=== PATIENT | male | born 1995 | race Caucasian/White ===

== ENCOUNTER 2021-12-11 10:50 | Emergency (ER) | payer OTHER, SELFPAY ==
[2021-12-11] VITALS (62 sets, daily range): BP systolic 120–165; BP diastolic 71–88; PULSE 55–78; RESP 9–27; TEMP 36.4; O2SAT 93–99
--- NOTE | 2021-12-11 10:45 | RT.EKG_ITS ---
APPROVED REPORT Exam: Resting ECG Reason for Exam: dizzy/arm numbness Patient Location: E HR:64 bpm ECG Measurements Heart Rate 64 AXIS IL 167 P 14 QRSd 107 QRS 66 QT 398 T 49 QTc 412 Conclusion Sinus rhythm...normal P axis, V-rate 60- 99 no stemi
--- NOTE | 2021-12-11 11:08 | W.ED.GENAD ---
Discharge Plan Disposition Patient Disposition: AGAINST MEDICAL ADVICE Condition: Stable Discharge Details Clinical Impression: Lightheaded Primary Care Provider: Anuja,Local ED Provider: Nolan Bhatia Home Meds and New Rx's Prescriptions: Continued omeprazole 40 MG capsule,delayed release(DR/EC) 40 mg PO DAILY Qty: 60 hydrocodone-acetaminophen 1 TAB tablet 1 tab PO Q6H PRN (Reason: Pain) Qty: 15 0RF Discharge Instructions Additional Instructions: Follow up as soon as possible with a primary care provider If you feel more ill, have worsening pain or difficulty breathing return to the emergency department Stand Alone Forms: Work Release Medical Decision Making 26 yo male with hx of erd comes in with cc of feeling lightheaded, some right scapula and right shoulder discomfort starting 4 hours ago while at work. 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 He denies feeling the room spinning or dizziness, he states it feels more like he is lightheaded. Denies any dyspnea, loc, abdomen pain, fevers, chills, drug use. He arrives stable with normal vitals. He has no deficits on exam and nih of 0. Has a reassuring hints exam as well so doubt central vertigo and has more of a lightheaded sensation than symptoms of vertigo. He has tenderness in the right scapula without any trauma, no rashes or other abnormalities noted. Clear lungs, no murmurs, no jvd or leg swelling. He has felt stressed as he has been working a lot and feel this could be stress related symptoms vs being overworked but will evaluate further with troponin, ecg unremarkable. He is wells low but states he feels taking a deep breath makes his pain mildly worse so will send d dimer to screen for pe. No tearing back pain and normal vascular exam so doubt dissection labs and xray unremarkable, he remains stable and feels much better after fluids, will obtain delta troponin, suspect exhaustion vs stress. pt now stating he doesn't want to wait for delta troponin. Discussed with him why we do the delta troponin and risks of leaving including and permanent disability and he still doesn't want to stay. He has decisions making capacity and is clinically sober. He is leaving against my medical advise. He understands he can return if he changes his mind at any time and advised to f/u with his pcp Differential Diagnosis Differential Diagnosis: nstemi, exhaustion, anxiety, pe Lab Data Lab results reviewed: Yes I reviewed the patient's lab results. ECG Data Attestation: I personally reviewed and interpreted this ECG (s) as follows: Prior ECG tracings: not available for review Interpretation: sinus rhythm, rate of 64, pr 167, no acute st t wave ischemic findings HPI General Mode of arrival: ambulatory. Date/Time Provider Initiated Documentation: 12/11/21 10:52. Limitations to Documentation: no limitations. Information obtained by: patient. History of Present Illness 26 year old M presents to the emergency department with the chief complaint of lightheaded, described as moderate, Patient started experiencing this hour(s) (4) and it has been constant. No relieving factors improve symptom(s), No exacerbating factors reported . Patient notes denies fever/chills. Patient did receive the following treatments prior to arrival, none Related Data Home Medications Medication Instructions Recorded Confirmed omeprazole 40 mg capsule,delayed 40 mg PO DAILY #60 tab-caps 02/19/16 12/11/21 release hydrocodone 5 mg-acetaminophen 325 1 tab PO Q6H PRN Pain #15 tabs 01/05/18 mg tablet Previous Rx's Medication Instructions Recorded hydrocodone 5 mg-acetaminophen 325 1 tab PO Q6H PRN Pain #15 tabs 01/05/18 mg tablet Allergies Allergy/AdvReac Type Severity Reaction Status Date / Time morphine Allergy Mild rash,vomiti Unverified 12/11/21 11:00 ng oxycodone HCl [From Percocet] Allergy Mild rash,vomiti Unverified 12/11/21 11:00 ng acetaminophen [From Percocet] AdvReac Mild rash,vomiti Unverified 12/11/21 11:00 ng General Stated Complaint: Dizzy/Sync GILLIAN: 3 Review of Systems All systems reviewed & are unremarkable except as noted in HPI and below Constitutional Constitutional: Denies chills and Denies fever(s) Eyes Eyes: Denies loss of vision ENT Ears, Nose, Mouth, and Throat: Denies change in voice Cardiovascular Cardiovascular: Denies dyspnea Respiratory Respiratory: Denies cough and Denies dyspnea Gastrointestinal Gastrointestinal: Denies abdominal pain, Denies nausea and Denies vomiting Musculoskeletal Musculoskeletal: Denies joint swelling Integumentary/Breasts Skin/Breast: Denies rash Neurologic Neurologic: Denies loss of vision PFSH All Active Problems (Updated 12/11/21 @ 12:45 by Nolan Bhatia MD) Lightheaded (Acute) Surgical History (Updated 01/03/16 @ 11:52 by Loni Biggs RN) Circumcision fracture repairs Family History Mother Essential hypertension Personal history of malignant neoplasm Thyroid removed for ? CA Mental disorder Depression and Anxierty Father Essential hypertension Other Diabetes Maternal grandmother diabetes. Essential hypertension Maternal and paternal grandparents. Heart disease Maternal and Paternal sides Hyperlipidemia PGM, PGM Social History Smoking/Tobacco Use Status: Former Tobacco Use Smoking risk assessment performed?: Yes Alcohol Intake: current Alcohol Intake frequency: a few times a week Drug use: Never Substance use type: does not use Do you feel safe at home: Yes Do you feel safe in your relationship?: Yes Exam Const General: no acute distress Orientation: alert HENMT Head: normal to inspection Ears: external ears normal General nose exam: external nose normal Mouth: moist mucous membranes Eyes General: appearance normal, both eyes and all related structures Neck Neck: normal visual inspection Resp Effort & Inspection: normal respiratory effort and able to speak in complete sentences Cardio Rate: regular rate GI Palpation: soft and nontender Skin General skin exam: no rashes or lesions noted Neuro General: patient alert and patient oriented x3 Extrem General: normal to inspection Psych Mental Status: mental status grossly normal Course Vital Signs Vital signs: Vital Signs Temperature 36.4 C L 12/11/21 10:56 Pulse 66 12/11/21 10:56 Respiratory Rate 18 12/11/21 10:56 Blood Pressure 165/82 H 12/11/21 10:56 Pulse Oximetry 97 12/11/21 10:56 Temperature 36.4 C L 12/11/21 10:56 Temperature Source Temporal Artery Scan 12/11/21 10:56 Pulse 66 12/11/21 10:56 Respiratory Rate 18 12/11/21 10:56 Respiratory Effort Non-Labored 12/11/21 11:01 Blood Pressure 165/82 H 12/11/21 10:56 Blood Pressure Position Sitting 12/11/21 10:56 Pulse Oximetry 97 12/11/21 10:56 Oxygen Delivery Method Room Air 12/11/21 10:56 Oxygen Flow Rate 0 12/11/21 10:56 PAWSS Have you Been Recently Intoxicated or Drunk Within the Last 30 days?: No Have you Ever Experienced Previous Episodes of Alcohol Withdrawal?: No Have you ever Experienced Withdrawal Seizures?: No Have you ever Experienced Delirium Tremens(DT)s?: No Have you ever undergone Alcohol Rehabilitation Treatment (i.e, inpt ot outpatient treatment programs)?: No Have you ever Experienced Blackouts?: No Have you ever Combined Alcohol with other Downers within the last 90 days?: No Have you ever Combined Alcohol with any other Substance of Abuse during the last 90 days?: No Positive Blood Alcohol level on Presentation? [PCS.BAL]: No Evidence of Increased Autonomic Activity (i.e. HR>120, tremor, sweating, agitation, nausea)?: No Result: 0
[2021-12-11 11:27] LABS: Abs Immature Grans 0.01 10^3/uL (0.0-0.06); Absolute Basophil Count 0.03 10^3/uL (0.0-0.2); Absolute Eosinophil Count 0.11 10^3/uL (0.0-0.7); Absolute Lymphocyte Count 1.93 10^3/uL (1.2-3.4); Absolute Neutrophil Count 4.27 10^3/uL (1.2-6.7); Basophils % 0.4; Eosinophils % 1.6; HCT 39.4 % (40.0-50.0); HGB 13.3 g/dL (13.5-17.5); Immature Grans % 0.1; Lymphocytes % 27.4; MCH 29.5 pg (27.0-33.0); MCHC 33.8 % (32.0-36.0); MCV 87 fL (80-95); MPV 9.7 fL (8.0-11.0); Monocytes % 9.9; Neutrophils % 60.6; Platelet Count 243 10^3/uL (130-400); RBC 4.51 10^6/uL (4.36-5.78); RDW 11.9 % (11.8-14.1); RDW-SD 38.2 fL; WBC 7.05 10^3/uL (4.4-10.8)
[2021-12-11] MEDS: Normal Saline 1,000 ML 1000 ML IV (11:33)
--- NOTE | 2021-12-11 11:40 | DI.RAD_ITS ---
Exam(s) XR PORTABLE CHEST AP EXAM: XR PORTABLE CHEST AP CLINICAL HISTORY: chest pain TECHNIQUE: 2D digital imaging was performed of the chest. One image was obtained. An AP view was ob tained. COMPARISON: No exams were available for comparison FINDINGS: MEDIASTINUM: Normal. HEART: Normal. PULMONARY VASCULATURE: Normal. LUNGS: Clear. PLEURAL SPACE: No pleural effusion or pneumothorax. BONE:Within normal limits for the patient's age. OTHER FINDINGS:Normal. IMPRESSION: No acute pulmonary findings. DATA REPOSITORY: RADIATION DOSE DELIVERED:
[2021-12-11 11:46] LABS: ALT 69 U/L (16-63); AST 46 U/L (15-37); Albumin 3.8 g/dL (3.4-5.0); Alkaline Phosphatase 72 U/L (46-116); Anion Gap 7.8 mmol/L (3-11); BUN 13 mg/dL (7-18); Bilirubin, Total 0.6 mg/dL (0.2-1.0); CO2 27.2 mmol/L (21.0-32.0); CREATININE 0.9 mg/dL (0.70-1.30); Chloride 103 mmol/L (98-107); Glucose 101 mg/dL (74-106); Lipase 80 U/L (73-393); Magnesium 1.8 mg/dL (1.8-2.4); Potassium 3.7 mmol/L (3.5-5.1); Sodium 138 mmol/L (136-145); Total Protein 7.4 g/dL (6.4-8.2); Troponin I < 50 ng/L (<or=60)
[2021-12-11 12:09] LABS: D-Dimer 273 ng/mlFEU (<500)
== END 2021-12-11 12:58 | disposition left against medical advice (07) ==
PROVIDERS: Emergency Provider Emergency Medicine
DX: R42 Dizziness and giddiness (principal); M25.511 Pain in right shoulder; Z87.891 Personal history of nicotine dependence
CPT/HCPCS: 36415; 80053; 83690; 93005; 96360; 99284; 71045; 83735; 84484; 85025; 85379; 93010

== ENCOUNTER 2022-05-08 01:14 | Outpatient (CLI) | payer OTHER, SELFPAY ==
--- NOTE | 2022-05-08 08:00 | DI.RAD_ITS ---
Exam(s) XR ANKLE LT COMPLETE EXAM: XR ANKLE LT COMPLETE CLINICAL HISTORY: LT ANKLE PAIN, M25.572,S/P TRAUMA 1 YEAR AGO, PRE PHYSICAL THERAPY. TECHNIQUE: 2D digital imaging was performed. COMPARISON: No exams were available for comparison FINDINGS: 3 views No evidence of fracture or widening of the ankle mortise. Talar dome unremarkable. No degenerative changes. No osteochondral defects. Os trigonum noted. No osseous tarsal coalition. IMPRESSION: No acute osseous findings. DATA REPOSITORY: RADIATION DOSE DELIVERED:
== END 2022-05-08 01:34 ==
LOC: DI 01:15
PROVIDERS: Visit Provider Nurse Practitioner Family
DX: M25.572 Pain in left ankle and joints of left foot (principal)
CPT/HCPCS: 73610

== ENCOUNTER 2022-06-27 16:43 | Outpatient (REF) | payer OTHER, SELFPAY ==
[2022-06-27 16:29] LABS: Abs Immature Grans 0.01 10^3/uL (0.0-0.06); Absolute Basophil Count 0.03 10^3/uL (0.0-0.2); Absolute Eosinophil Count 0.16 10^3/uL (0.0-0.7); Absolute Lymphocyte Count 1.83 10^3/uL (1.2-3.4); Absolute Monocyte Count 0.58 10^3/uL (0.1-0.8); Absolute Neutrophil Count 2.97 10^3/uL (1.2-6.7); Basophils % 0.5; Eosinophils % 2.9; HCT 44.4 % (40.0-50.0); HGB 14.5 g/dL (13.5-17.5); Immature Grans % 0.2; Lymphocytes % 32.8; MCH 28.9 pg (27.0-33.0); MCHC 32.7 % (32.0-36.0); MCV 88 fL (80-95); MPV 10.1 fL (8.0-11.0); Monocytes % 10.4; Neutrophils % 53.2; Platelet Count 339 10^3/uL (130-400); RBC 5.02 10^6/uL (4.36-5.78); RDW 12.5 % (11.8-14.1); RDW-SD 40.2 fL; WBC 5.58 10^3/uL (4.4-10.8)
[2022-06-27 16:55] LABS: ALT 84 U/L (16-63); AST 56 U/L (15-37); Albumin 4.5 g/dL (3.4-5.0); Alkaline Phosphatase 75 U/L (46-116); Anion Gap 10.7 mmol/L (3-11); BUN 9 mg/dL (7-18); Bilirubin, Total 0.7 mg/dL (0.2-1.0); CO2 26.3 mmol/L (21.0-32.0); CREATININE 0.9 mg/dL (0.70-1.30); Calcium 9.8 mg/dL (8.5-10.1); Chloride 104 mmol/L (98-107); Estimated GFR 122.31 (mL/min/1.73m2); Folate 11.9 ng/mL (8.6-20.0); Glucose 97 mg/dL (74-106); Potassium 4.2 mmol/L (3.5-5.1); Sodium 141 mmol/L (136-145); TSH (W/Ref FT4) 0.87 uIU/mL (0.36-3.74); Total Protein 7.8 g/dL (6.4-8.2)
[2022-06-27 16:56] LABS: Hemoglobin A1C 5.2 % (<5.7)
== END 2022-06-27 16:44 | disposition home or self-care (01) ==
LOC: NCHCN 16:43
PROVIDERS: Visit Provider Nurse Practitioner Family
DX: Z00.00 Encounter for general adult medical examination without abnormal findings (principal); F10.10 Alcohol abuse, uncomplicated; R25.2 Cramp and spasm; K21.9 Gastro-esophageal reflux disease without esophagitis; R94.5 Abnormal results of liver function studies; E66.01 Morbid (severe) obesity due to excess calories; Z13.1 Encounter for screening for diabetes mellitus; Z13.29 Encounter for screening for other suspected endocrine disorder
CPT/HCPCS: 80053; 82746; 83036; 83735; 84443; 85025

== ENCOUNTER 2022-08-23 01:49 | Emergency (ER) | payer OTHER, SELFPAY ==
[2022-08-23 01:54] VITALS: BP 121/96; PULSE 105; RESP 18; TEMP 36.6; O2SAT 96
--- NOTE | 2022-08-23 02:00 | DI.RAD_ITS ---
Exam(s) XR ANKLE RT COMPLETE EXAM: XR ANKLE RT COMPLETE CLINICAL HISTORY: no tramua, posterior and lateral ankle pain. TECHNIQUE: 2D digital imaging was performed of the right ankle. Three images were obtained. AP, la teral and oblique views were obtained. COMPARISON: No exams were available for comparison FINDINGS: BONES: There is a nondisplaced fracture through the base of the 5th metatarsal. No bony destructive lesion is seen. There is a bony protuberance arising from the posterior aspect of the distal tibial m etaphysis suspicious for osteochondroma. There is a well corticated osseous density at the tip of th e lateral malleolus which appears old. There is an enthesophyte at the posterior calcaneus. JOINTS: The ankle mortise is normally aligned. SOFT TISSUE: Normal. IMPRESSION: 1. Nondisplaced fracture through the base of the 5th metatarsal. 2. Probable osteochondroma arising from the posterior aspect of the distal tibial metaphysis. DATA REPOSITORY: RADIATION DOSE DELIVERED:
[2022-08-23] MEDS: Ketorolac 30 MG/ML VIAL IM (02:16)
[2022-08-23] MEDS: Lidocaine 5% Patch 1 PATCH TP (02:16)
[2022-08-23] MEDS: Acetaminophen 500 MG TAB 1000 MG PO (02:17)
--- NOTE | 2022-08-23 02:42 | ED.GENADUL_ITS ---
Discharge Plan Disposition Patient Disposition: Home Condition: Good Discharge Details Chief Complaint: Orthopedic Clinical Impression: Closed fracture of fifth metatarsal bone, Osteochondroma of right tibia Primary Care Provider: Anuja,Local ED Provider: Shyam Muro Home Meds and New Rx's Prescriptions: No Action omeprazole 40 MG capsule,delayed release(DR/EC) 40 mg PO DAILY Qty: 60 hydrocodone-acetaminophen 1 TAB tablet 1 tab PO Q6H PRN (Reason: Pain) Qty: 15 0RF Discharge Instructions Instructions: Foot Fracture in Adults (ED) Additional Instructions: At this time you have a mild fracture in the base of your foot at the fifth metatarsal. Please remain nonweightbearing for the next 2 weeks. Use the crutches to maintain this. Eventually please gradually transition to mild weightbearing utilizing the walking boot that we have given you. We have placed a referral for a new primary care provider. Please follow-up closely with them. If you notice any worsening of your symptoms, or any new symptoms such as vomiting, diarrhea, fever, chills, shortness of breath, chest pain, numbness, weakness, or fainting , please return immediately to the emergency department for reevaluation. Please follow up with your primary care provider as soon as possible for reassessment and reevaluation. As always, it was a pleasure participating in your medical care today. Medical Decision Making 27-year-old male no significant past medical history except for reflu x, and previous left foot and ankle pain, presents today for right ankle and foot pain. Patient states that out of nowhere he woke up this morning/evening. It is Achilles tendon and heel and ankle. He denies any trauma or any new activity. He states that he had similar/identical symptoms on the left hand foot in the past, but work-up revealed no focal cause. He denies any trauma, he denies any new activity. He denies any personal or family history of gout. He denies any known history of reflex and pathetic dystrophy. No other complaints at this time. Pain is made worse with weightbearing and movement. Improved by nothing. He has not taken any medications. He denies any numbness or tingling. He denies any calf tenderness. He denies any recent long trips or surgeries. Exam demonstrates an unremarkable right lower extremity on exam from a visual perspective. No redness swelling or edema. No evidence of trauma or bruising. Patient does have subjective notable tenderness over the Achilles tendon, the calcaneus, the ankle. No tenderness in the feet or mid pedraza. Uncertain as to what the exact causes of his symptoms. Doubt fracture but we will get an x-ray to rule out atypical lesion. There is potential for gout, reflect sympathetic dystrophy, or arthropathy. We will give Toradol, Tylenol and Lidoderm patch. Will monitor closely and reassess. 3:51 AM X-ray shows evidence of what appears to be mild osteochondroma, which is not in the location of his pain. 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 Patient does not recall any trauma. He does not snowboard, ride horses, or dirt bike. He normally wears sneakers or work boots. Will recommend continue Tylenol Motrin. Recommend nonweightbearing for the next 2 weeks with slow transition to walking boot. Discussed importance of close follow-up with PCP. Discussed red flags for which to return. I have extensively reviewed the treatment plan and discharge instructions with the patient and their family. I have addressed all patient concerns at this time. The patient and family was made aware of what symptoms to monitor for that would warrant a return to the emergency department. Discussed the plan with the patient and family, they demonstrate verbal understanding and agreement with our assessment and plan at this time. The documentation in this chart was dictated using Holidog dictation software. Please excuse any dictation errors. We will place a referral for a primary care provider for the patient FINDINGS: Bones/joints: There is a probable osteochondroma projecting from the dorsal aspect of the right tibia. Noninflamed enthesophyte seen within the region of the Achilles tendon. Probable old injury to the right fibula. Appears to be a fracture of the proximal 5th metatarsal recommend obtaining additional foot views if clinically warranted. Bone mineralization is age- appropriate. No evidence of dislocation. The joint spaces are adequately preserved; no significant degenerative narrowing and no bony erosion seen. Soft tissues: No radiopaque foreign body present. There is soft tissue swelling present. IMPRESSION: 1. Appears to be a fracture of the proximal 5th metatarsal recommend obtaining additional foot views if clinically warranted. 2. Soft tissue swelling only. 3. There is a probable osteochondroma projecting from the dorsal aspect of the right tibia. Thank you for allowing us to participate in the care of your patient. Dictated and Authenticated by: Skyler Poon MD [facility] General Date/Time Provider Initiated Documentation: 08/23/22 01:59 . HPI Narrative: 27-year-old male no significant past medical history except for reflux, and previous left foot and ankle pain, presents today for right ankle and foot pain. Patient states that out of nowhere he woke up this morning/evening. It is Achilles tendon and heel and ankle. He denies any trauma or any new activity. He states that he had similar/identical symptoms on the left hand foot in the past, but work-up revealed no focal cause. He denies any trauma, he denies any new activity. He denies any personal or family history of gout. He denies any known history of reflex and pathetic dystrophy. No other complaints at this time. Pain is made worse with weightbearing and movement. Improved by nothing. He has not taken any medications. He denies any numbness or tingling. He denies any calf tenderness. He denies any recent long trips or surgeries. Related Data Home Medications Medication Instructions Recorded Confirmed omeprazole 40 mg capsule,delayed 40 mg PO DAILY #60 tab-caps 02/19/16 08/23/22 release hydrocodone 5 mg-acetaminophen 325 1 tab PO Q6H PRN Pain #15 tabs 01/05/18 mg tablet Previous Rx's Medication Instructions Recorded hydrocodone 5 mg-acetaminophen 325 1 tab PO Q6H PRN Pain #15 tabs 01/05/18 mg tablet Allergies Allergy/AdvReac Type Severity Reaction Status Date / Time morphine Allergy Mild rash,vomiti Unverified 08/23/22 02:06 ng oxycodone HCl [From Percocet] Allergy Mild rash,vomiti Unverified 08/23/22 02:06 ng acetaminophen [From Percocet] AdvReac Mild rash,vomiti Unverified 08/23/22 02:06 ng General Stated Complaint: Orthopedic GILLIAN: 3 Review of Systems All systems reviewed & are unremarkable except as noted in HPI and below PFSH All Active Problems (Updated 08/23/22 @ 03:55 by Shyam Muro DO) Closed fracture of fifth metatarsal bone (Acute) Osteochondroma of right tibia (Acute) Surgical History Circumcision fracture repairs Family History Mother Essential hypertension Personal history of malignant neoplasm Thyroid removed for ? CA Mental disorder Depression and Anxierty Father Essential hypertension Other Diabetes Maternal grandmother diabetes. Essential hypertension Maternal and paternal grandparents. Heart disease Maternal and Paternal sides Hyperlipidemia PGM, PGM Social History Smoking/Tobacco Use Status: Former Tobacco Use Smoking risk assessment performed?: Yes Alcohol Intake: current Alcohol Intake frequency: a few times a week Drug use: Never Substance use type: does not use Do you feel safe at home: Yes Do you feel safe in your relationship?: Yes Exam Narrative Exam Narrative: 1.Const: Well-nourished, Well-developed, appearing stated age 2.Eyes: PERRL, no conjunctival injection, and symmetrical lids. 3.ENT: Atraumatic external nose and ears. Moist MM. Neck: Symmetric, trachea midline, No thyromegaly. 4.CVS: +S1/S2, No murmurs or gallops. Peripheral pulses 2+ and equal in all extremities. Brisk capillary refill in all extremities. 5.RESP: Unlabored respiratory effort. Clear to auscultation bilaterally. No wheezes rales or rhonchi 6.GI: Soft, Nontender/Nondistended, No hepatosplenomegaly. No guarding or rebound. 7.MSK: Normocephalic/Atraumatic, Extremities w/o deformity, right ankle there is evidence of subjective tenderness over the Achilles tendon, the heel, and the ankle throughout. No focal tenderness. No redness swelling discharge or rash. Normal sensation in the toes and foot. No tenderness in the toes or distal metatarsals/phalanges. No tenderness over the mid or proximal tib-fib. No tenderness on the calf. Pain is present with any movement of the ankle. Patient did not tolerate weightbearing. 8.Skin: Warm, Dry. No rashes or lesions. 9.Neuro: pharmaceutical sales II-XII grossly intact. Sensation grossly intact, no focal neurologic deficits. 10.Psych: (AAO) x3. Appropriate mood and affect Course Vital Signs Vital signs: Vital Signs Temperature 36.6 C 08/23/22 01:54 Pulse 105 H 08/23/22 01:54 Respiratory Rate 18 08/23/22 01:54 Blood Pressure 121/96 H 08/23/22 01:54 Pulse Oximetry 96 08/23/22 01:54 Temperature 36.6 C 08/23/22 01:54 Temperature Source Oral 08/23/22 01:54 Pulse 105 H 08/23/22 01:54 Respiratory Rate 18 08/23/22 01:54 Respiratory Effort Normal 08/23/22 02:01 Blood Pressure 121/96 H 08/23/22 01:54 Blood Pressure Position Sitting 08/23/22 01:54 Pulse Oximetry 96 08/23/22 01:54 Oxygen Delivery Method Room Air 08/23/22 01:54 Oxygen Flow Rate 0 08/23/22 01:54 Pain Level 8 08/23/22 02:01
--- NOTE | 2022-08-23 03:37 | DI.VRAD_ITS ---
PROCEDURE INFORMATION: Exam: XR Right Ankle Exam date and time: 08/23/2022 2:35 AM Age: 27 years old Clinical indication: Pain; Ankle; Right; Additional info: No tramua, posterior and lateral ankle pain TECHNIQUE: Imaging protocol: Radiologic exam of the right ankle. Views: 3 or more views. COMPARISON: No relevant prior studies available. FINDINGS: Bones/joints: There is a probable osteochondroma projecting from the dorsal aspect of the right tibia. Noninflamed enthesophyte seen within the region of the Achilles tendon. Probable old injury to the right fibula. Appears to be a fracture of the proximal 5th metatarsal recommend obtaining additional foot views if clinically warranted. Bone mineralization is age-appropriate. No evidence of dislocation. The joint spaces are adequately preserved; no significant degenerative narrowing and no bony erosion seen. Soft tissues: No radiopaque foreign body present. There is soft tissue swelling present. IMPRESSION: 1. Appears to be a fracture of the proximal 5th metatarsal recommend obtaining additional foot views if clinically warranted. 2. Soft tissue swelling only. 3. There is a probable osteochondroma projecting from the dorsal aspect of the right tibia. Dictated and Authenticated by: Skyler Poon MD. Ordering:NEIDA Howe MD
[2022-08-23 04:06] VITALS: PULSE 100; RESP 18; O2SAT 98
== END 2022-08-23 04:07 | disposition home or self-care (01) ==
PROVIDERS: Emergency Provider Student in an Organized Health Care Education/Training Program
DX: S92.351A Displaced fracture of fifth metatarsal bone, right foot, initial encounter for closed fracture (principal); D16.21 Benign neoplasm of long bones of right lower limb; X58.XXXA Exposure to other specified factors, initial encounter
CPT/HCPCS: 96372; 99284; 73610; J1885

== ENCOUNTER 2023-08-05 18:13 | Outpatient (REF) | payer BC, SELFPAY ==
[2023-08-05 19:30] LABS: HCT 42.9 % (40.0-50.0); HGB 14.1 g/dL (13.5-17.5); MCHC 32.9 % (32.0-36.0); MCV 88 fL (80-95); MPV 10.4 fL (8.0-11.0); Platelet Count 300 10^3/uL (130-400); RBC 4.86 10^6/uL (4.36-5.78); RDW 12.7 % (11.8-14.1); WBC 7.76 10^3/uL (4.4-10.8)
[2023-08-05 20:08] LABS: ALT 53 U/L (16-63); AST 31 U/L (15-37); Albumin 4.1 g/dL (3.4-5.0); Alkaline Phosphatase 93 U/L (46-116); Anion Gap 13.7 mmol/L (3-11); BUN 16 mg/dL (7-18); Bilirubin, Total 0.4 mg/dL (0.2-1.0); CO2 24.3 mmol/L (21.0-32.0); CREATININE 0.7 mg/dL (0.70-1.30); Calcium 9.1 mg/dL (8.5-10.1); Chloride 107 mmol/L (98-107); Estimated GFR 130.32 (mL/min/1.73m2); Folate 17.4 ng/mL (8.6-20.0); Glucose 104 mg/dL (74-106); Potassium 4.3 mmol/L (3.5-5.1); Sodium 145 mmol/L (136-145); Total Protein 7.5 g/dL (6.4-8.2); Vitamin B12 427 pg/mL (193-986)
[2023-08-06 12:04] LABS: TSH (W/Ref FT4) 0.71 uIU/mL (0.36-3.74)
[2023-08-11 10:37] LABS: Misc Referral (MAYO) See Comments
== END 2023-08-05 18:14 | disposition home or self-care (01) ==
LOC: NCHCN 18:13
PROVIDERS: PCP Nurse Practitioner Family; Visit Provider Nurse Practitioner Family
DX: L65.9 Nonscarring hair loss, unspecified (principal)
CPT/HCPCS: 80053; 85027; 86780; 82607; 82746; 84443

== ENCOUNTER → 2023-12-17 15:32 | Outpatient (CLI) | payer BC, SELFPAY ==
--- NOTE | 2023-12-17 13:19 | DI.RAD_ITS ---
Exam(s) XR FINGER RT INDEX EXAM: XR FINGER RT INDEX CLINICAL HISTORY: INJURY RT FINGER [id number]. TECHNIQUE: 2D digital imaging was performed. Three views. COMPARISON: No exams were available for comparison FINDINGS: BONES: 6 millimeter fracture fragment seen significantly displaced dorsally to the proximal interphal angeal joint which originates from the head of the proximal phalanx. No bony destructive lesion is s een. JOINTS: No dislocation present. SOFT TISSUE: Normal. IMPRESSION: Fracture of the head of the proximal phalanx of the index finger with dorsally displaced fracture fra gment. DATA REPOSITORY: RADIATION DOSE DELIVERED:
--- OUTSIDE RECORDS SUMMARY | 2023-12-17 15:34 | XMS_ITS | Encounter Summary ---
Author Organization [facility] Address [facility] [place] [address] Care Team Providers Care Marine Electronics Technician Name Role Phone Janay Briones APRN Primary Care Provider [phone] Reason for Visit * Consultation (Routine) - Closed Specialty Diagnoses / Procedures Referred By Lc castillo Referred To Contact Dermatology Diagnoses Other alopecia areata Janay Briones APRN [address] [place] [address] [facility] Dermatology [address] [place] [address] Referral ID Status Reason Start Date Expiration Date V isits Requested Visits Authorized [id number] Closed Consult, Test & Treat PCP Updated and/or Approved 08/06/2023 02/06/2024 1 1 Encounter Details Date Type Department Care Team (Late st Contact Info) Description 09/11/2023 10:00 AM EDT Office Visit Dermatology at [facility] [address] [place] [address] Regla Schneider MD [facility] [address] [place] [address] Alopecia areata Social History Tobacco Use Types Packs/Day Years Used Date Smoking Tobacco: Never Assessed Sex and Gender Information Value Date Recorded Sex Assigned at Not on file Gender Identity Not on file Sexual Orientation Not on file documented as of this encounter Progress Notes * Regla Schneider MD - 09/11/2023 10:00 AM EDT Images from the original note were not included. DEPARTMENT OF DERMATOLOGY Medical Dermatology Clinic Provider: Regla Schneider MD Patient's preferred name Olivier Preferred contact method for results [x]Phone []myD-H []Letter Detailed phone message OK? yes Are there any other people with whom we may discuss your care? Past Medical History Date, location, treatment Melanoma Dysplastic nevi SCC BCC AKs UV Exposure & Protection Other relevant past medical history Family History Details Melanoma NMSC Other relevant family history Social History Occupation: Hobbies: Other: Pre-Procedure Screening Details Allergy to lidocaine, epinephrine, Dermabond, chlorhexidine, or adhesives Bleeding disorder or blood thinners Pacemaker, defibrillator, deep brain stimulator, cochlear implant History of Present Illness: Olivier Santana is a 28 y.o. Patient is new and self-referred to the clinic for hair loss, alopecia areata is being questioned, has not been treated for it, been going onfor about 3 months, every once and a while his scalp will be itchy. Medications: Reviewed in eD-H Allergies: Reviewed in eD-H Skin Examination: Focused skin examination of the scalp was normal with the exception of the findings below. Assessment/Plan #. Alopecia Areata, moderate - Isolated, well-circumscribed, round patches of smooth hairless skin diffuse on scalp, few areas with regrowth. Exclamation point hairs. No erythema or scarring. Alopecia Areata Scale Scalp hair loss Severity Extent of scalp hair loss ?Mild AA 20% or less scalp hair loss Moderate AA 21%-49% scalp hair loss Severe AA 50%-100% scalp hair loss Negative impact on psychosocial functioning resulting from AA - Discussed diagnosis at length, including unknown etiology and expected disease course (spontaneous remissions and recurrences). - Pt had lab work with PCP; he states it was within normal limits, unsure what was drawn - We discussed multiple treatment options including topical steroids, intralesional steroids, oral JONNA inhibitors (tofacitinib, baricitinib) - Pt declines injections; he is currently smoking so avoid JONNA inhibitors for now - Start Rx: Ruxolitinub 1.5% Cream apply topically to the scalp two times daily for 2 weeks, take 1week off, repeat - Start Rx: Clobetasol 0.05% Cream apply topically to the scalp two times daily for 1 week in between steroid treatment. Alternate with topical ruxolitinib if approved for the week off. - Discussed will likely take several months to see effect from topicals; faster response expected to ILK and/or JONNA inhibitors, but pt prefers to start with topicals Figure 1 Figure 2 Figure 3 Figure 4 Photo(s) taken and charted with patient's verbal consent. Other: N/A RTC: 3 month AA follow up // sooner as needed []Note routed to marketing secretary []Recall placed in scheduling system [x]Appointment scheduled at checkout Scribe attestation: PRANAV Zuniga has performed the documentation for this encounter in the presence of and acting as a scribe for Regla Schneider MD. I performed the above scribed service and agree with the accuracy of the documentation in this encounter. Reviewed and signed by: Regla Schneider MD Dermatology [facility] documented in this encounter Plan of Treatment Not on file documented as of this encounter Visit Diagnoses Diagnosis Alopecia areata documented in this encounter Care Teams Marine Electronics Technician Relationship Specialty Start Date End Date Janay Briones [place] [address] [place] [address] PCP - General Family Medicine 08/13/23 documented as of this encounter
--- OUTSIDE RECORDS SUMMARY | 2023-12-17 15:34 | XMS_ITS | Encounter Summary ---
Author Organization [facility] Address [facility] [place] [address] Care Team Providers Care Service Trainer Name Role Phone Unavailable Primary Care Provider Unavailabl e Encounter Details Date Type Department Care Team (Late st Contact Info) Description 03/16/2010 2:20 PM EDT - 03/16/2010 11:59 PM EDT Hospital Encounter ZUNSCHEDULED Ankush Tracey MD [facility] [place] [address] Discharge Disposition: Home Social History Tobacco Use Types Packs/Day Years Used Date Smoking Tobacco: Never Assessed Sex and Gender Information Value Date Recorded Sex Assigned at Not on file Gender Identity Not on file Sexual Orientation Not on file documented as of this encounter Plan of Treatment Not on file documented as of this encounter Visit Diagnoses Not on filedocumented in this encounter
--- OUTSIDE RECORDS SUMMARY | 2023-12-17 15:34 | XMS_ITS | Encounter Summary ---
Author Organization [facility] Address [facility] [address] Care Team Providers Care Child And Family Services Worker Name Role Phone Manuel Aguirre MD Primary Care Provider [phone] Reason for Visit * Reason Comments Right Wrist Fracture DOI 02/16/10 Encounter Details Date Type Department Care Team (Late st Contact Info) Description 09/20/2010 2:40 PM EDT [place] [id number] Ankush Tracey MD [facility] [place] [address] Fracture, radius (Primary Dx) Discharge Disposition: Home Social History Tobacco Use Types Packs/Day Years Used Date Smoking Tobacco: Never Assessed Sex and Gender Information Value Date Recorded Sex Assigned at Not on file Gender Identity Not on file Sexual Orientation Not on file documented as of this encounter Progress Notes * Ankush Tracey MD - 12/16/2010 8:37 PM EDT History of Present Illness: Olivier Santana is a15 y.o. male who [facility] today for follow-upof his salter II fracture of the distal radius. Since his last visit he has been normally active and asymptomatic. They have not noticed any deformity. He has grpwn since last visit. He is otherwise healthy. Physical Examination: This reveals a healthy young man. His wrist and forearm look normal with no deformity. There is no tenderness. There is FROM in flexion extension, radial and ulnar deviation and pronation and supination. He is neurovascularly intact. X-rays: There is a healed distal radial fracture with no deformity. There is no evidence of growth abnormality of the distal radial or ulnar physes. Assessment and Plan: There is a normal exam, no growth abnormality on x-ray, and normal exam. 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 He can be normally active and return to clinic on a PRN basis documented in this encounter Plan of Treatment Not on file documented as of this encounter Visit Diagnoses Diagnosis Fracture, radius- Primary Closed fracture of unspecified part of radius (alone) documented in this encounter Care Teams Child And Family Services Worker Relationship Specialty Start Date End Date Manuel Aguirre MD [address] [place] [address] PCP - General 04/10/10 01/04/16 documented as of this encounter
--- OUTSIDE RECORDS SUMMARY | 2023-12-17 15:34 | XMS_ITS | Encounter Summary ---
Author Organization [facility] [place] [address] Care Team Providers Care Manager Application Development Name Role Phone Janay Briones APRN Primary Care Provider [phone] Reason for Referral * Consultation (Routine) - Closed Specialty Diagnoses / Procedures Referred By Lc t Referred To Contact Dermatology Diagnoses Other alopecia areata Janay Briones APRN [address] [place] [address] [facility] Dermatology [address] [place] [address] Referral ID Status Reason Start Date Expiration Date V isits Requested Visits Authorized [id number] Closed Consult, Test & Treat PCP Updated and/or Approved 08/06/2023 02/06/2024 1 1 Encounter Details Date Type Department Care Team (Latest Contact Info) Description 08/13/2023 Transcribe Orders eDH Incoming Referrals [phone] Janay Briones APRN [address] [place], [place] [id number] Other alopecia areata Social History Tobacco Use Types Packs/Day Years Used Date Smoking Tobacco: Never Assessed Sex and Gender Information Value Date Recorded Sex Assigned at Not on file Gender Identity Not on file Sexual Orientation Not on file documented as of this encounter Plan of Treatment Scheduled Referrals Name Type Priority Associated Diagnoses Order Schedule Referral to Dermatology Outpatient Referral Routine Other Alopecia Areata Ordered: 08/13/2023 documented as of this encounter Visit Diagnoses Diagnosis Other alopecia areata documented in this encounter Care Teams Manager Application Development Relationship Specialty Start Date End Date Janay Briones, DIRECTOR COMMERCIAL SALES [facility] [place] [place] [address] PCP - General Family Medicine 08/13/23 documented as of this encounter
--- OUTSIDE RECORDS SUMMARY | 2023-12-17 15:34 | XMS_ITS | Encounter Summary ---
Author Organization [facility] Address [facility] [place] [address] Care Team Providers Care Warehouse Delivery Driver Name Role Phone Manuel Aguirre MD Primary Care Provider [phone] Encounter Details Date Type Department Care Team (Late st Contact Info) Description 09/20/2010 Orders [place] [address] Sohan Huggins MD [facility] [address] [place] [address] Social History Tobacco Use Types Packs/Day Years Used Date Smoking Tobacco: Never Assessed Sex and Gender Information Value Date Recorded Sex Assigned at Not on file Gender Identity Not on file Sexual Orientation Not on file documented as of this encounter Plan of Treatment Not on file documented as of this encounter Procedures Procedure Name Priority Date/Time Associated Diagnosis Comments XR WRIST COMPLETE MINIMUM 3 VIEWS Routine 09/20/2010 2:03 PM EDT documented in this encounter Results * XR WRIST COMPLETE MINIMUM 3 VIEWS (09/20/2010 2:03 PM EDT) Anatomical Region Laterality Modality N/A Radiographic Debora ging 09/20/2010 2:03 PM EDT Narrative 09/21/2010 7:41 AM EDT RIGHT WRIST, THREE VIEWS, 09/20/10: ?? CLINICAL HISTORY: ??Radius fracture. ?? COMPARISON: ??Comparison is made to multiple previous films dating back to 02/16/10 and including the most recent previous study dated 03/16/10. ?? FINDINGS: ??As shown on previous studies, the patient's distal radius fracture has been reduced and there is sclerosis at the level of the fracture consistent with ongoing healing. 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 ??No acute complication is seen. Procedure Note Phil Wang MD - 09/21/2010 RIGHT WRIST, THREE VIEWS, 09/20/10: CLINICAL HISTORY: Radius fracture. COMPARISON: Comparison is made to multiple previous films dating back to 02/16/10 and including the most recent previous study dated 03/16/10. FINDINGS: As shown on previous studies, the patient's distal radiusfracture has been reduced and there is sclerosis at the level of the fractureconsistent with ongoing healing. There is a fracture nonunion at the base of theulnar styloid. No acute complication is seen. Sohan Huggins MD IMG DX ORDERABLES documented in this encounter Visit Diagnoses Not on filedocumented in this encounter Care Teams Warehouse Delivery Driver Relationship Specialty Start Date End Date Manuel Aguirre MD [address] [place] [address] PCP - General 04/10/10 01/04/16 documented as of this encounter
--- OUTSIDE RECORDS SUMMARY | 2023-12-17 15:34 | XMS_ITS | Encounter Summary ---
Author Organization [facility] Address [facility] [place] [address] Care Team Providers Care Lead Android Developer Name Role Phone Janay Briones APRN Primary Care Provider [phone] Reason for Visit * Reason Onset Date Comments Medication Refill 09/11/2023 Encounter Details Date Type Department Care Team (Late st Contact Info) Description 09/11/2023 Refill Dermatology at [facility] [address] [place] [address] Regla Schneider MD [facility] [address] [place] [address] Social History Tobacco Use Types Packs/Day Years Used Date Smoking Tobacco: Never Assessed Sex and Gender Information Value Date Recorded Sex Assigned at Not on file Gender Identity Not on file Sexual Orientation Not on file documented as of this encounter Plan of Treatment Not on file documented as of this encounter Visit Diagnoses Not on filedocumented in this encounter Care Teams Lead Android Developer Relationship Specialty Start Date End Date Janay Briones [place] [place] [address] PCP - General Family Medicine 08/13/23 documented as of this encounter
--- OUTSIDE RECORDS SUMMARY | 2023-12-17 15:34 | XMS_ITS | Encounter Summary ---
Author Organization [facility] Address [facility] [place] [address] Care Team Providers Care Director Presales Name Role Phone Janay Briones APRN Primary Care Provider [phone] Encounter Details Date Type Department Care Team (Late st Contact Info) Description 09/11/2023 Telephone Dermatology at [facility] [address] [place] [address] Regla Schneider MD [facility] [address] [place] [address] Social History Tobacco Use Types Packs/Day Years Used Date Smoking Tobacco: Never Assessed Sex and Gender Information Value Date Recorded Sex Assigned at Not on file Gender Identity Not on file Sexual Orientation Not on file documented as of this encounter Miscellaneous Notes * Telephone Encounter - Lyubov Turner - 09/11/2023 2:47 PM EDT Olivier Santana called as he was seen for a visit this morning with Dr. Schneider. He stated that [facility] would not accept his insurance, so he requested that the medications be change to [facility] in [facility]. documented in this encounter Plan of Treatment Not on file documented as of this encounter Visit Diagnoses Not on filedocumented in this encounter Care Teams Director Presales Relationship Specialty Start Date End Date Janay Briones, [place] [address] PCP - General Family Medicine 08/13/23 documented as of this encounter
--- OUTSIDE RECORDS SUMMARY | 2023-12-17 15:34 | XMS_ITS | Encounter Summary ---
[place] [address] Care Team Providers Care Electro Mechanical Designer Name Role Phone Janay Briones APRN Primary Care Provider [phone] Encounter Details Date Type Department Care Team (Latest Contact Info) Description 09/11/2023 Travel Social History Tobacco Use Types Packs/Day Years Used Date Smoking Tobacco: Never Assessed Sex and Gender Information Value Date Recorded Sex Assigned at Not on file Gender Identity Not on file Sexual Orientation Not on file documented as of this encounter Plan of Treatment Not on file documented as of this encounter Visit Diagnoses Not on filedocumented in this encounter Care Teams Electro Mechanical Designer Relationship Specialty Start Date End Date Janay Briones APRN [address] [place], [place] [id number] PCP - General Family Medicine 08/13/23 documented as of this encounter
--- OUTSIDE RECORDS SUMMARY | 2023-12-17 15:34 | XMS_ITS | Encounter Summary ---
Author Organization [facility] Address [facility] [place] [address] Care Team Providers Care Family Day Care Provider Name Role Phone Manuel Aguirre MD Primary Care Provider [phone] Encounter Details Date Type Department Care Team (Late st Contact Info) Description 09/20/2010 1:49 PM EDT - 09/20/2010 11:59 PM EDT Hospital Encounter XRay at [address] [place] [address] Social History Tobacco Use Types Packs/Day Years Used Date Smoking Tobacco: Never Assessed Sex and Gender Information Value Date Recorded Sex Assigned at Not on file Gender Identity Not on file Sexual Orientation Not on file documented as of this encounter Plan of Treatment Not on file documented as of this encounter Visit Diagnoses Not on filedocumented in this encounter Care Teams Family Day Care Provider Relationship Specialty Start Date End Date Manuel Aguirre MD [address] [place] [address] PCP - General 04/10/10 01/04/16 documented as of this encounter
--- OUTSIDE RECORDS SUMMARY | 2023-12-17 15:34 | XMS_ITS | Clinical Summary ---
Author Organization [facility] Address [facility] [place] [address] Care Team Providers Care Client Application Support Specialist Name Role Phone Janay Briones APRN Primary Care Provider [phone] Allergies Active Allergy Reactions Criticality Noted Date Comments Morphine Sulfate Itching Low Oxycodone-Acetaminoph en Nausea And Vomiting Medium Venom-Wasp 01/24/2022 Other Reaction(s): Not available Medications Medication Sig Dispensed Refills Start Date End Date Status clobetasoL (Temovate) 0.05 % Cream Apply topically to the scalp 2 times daily for 2 weeks, take one week off, repeat 60 g 1 09/11/2023 Active ruxolitinib 1.5 % Cream Apply topically to the scalp 2 times daily for the 1 week in between topical steroid, repeat 60 g 1 09/11/2023 Active Social History Tobacco Use Types Packs/Day Years Used Date Smoking Tobacco: Never Assessed Sex and Gender Information Value Date Recorded Sex Assigned at Not on file Gender Identity Not on file Sexual Orientation Not on file Plan of Treatment Health Maintenance Due Date Last Done Comments HPV vaccine (1 - Male 3-dose series) 2012 HIV screen 2015 Hepatitis C Screening 2015 Hepatitis B vaccine (0-59 yrs) (1) 2016 Tdap adult 2016 Tetanus vaccine 2016 Covid-19 Vaccine ( - 2022-24 season) 2023 Influenza (Flu) vaccine (1 o f 1 - Influenza standard series) 01/18/2024 Care Teams Client Application Support Specialist Relationship Specialty Start Date End Date Janay Briones, SPINNING AND WINDING SUPERVISOR [address] [place], [place] [id number] PCP - General Family Medicine 08/13/23
== END ==
PROVIDERS: PCP Nurse Practitioner Family; Visit Provider Physician Assistant Medical
DX: S69.91XA Unspecified injury of right wrist, hand and finger(s), initial encounter (principal); S62.640A Nondisplaced fracture of proximal phalanx of right index finger, initial encounter for closed fracture
CPT/HCPCS: 73140

== ENCOUNTER 2023-12-19 06:06 | Day surgery (SDC) | payer BC, SELFPAY ==
--- OUTSIDE RECORDS SUMMARY | 2023-12-19 06:09 | XMS_ITS | Encounter Summary ---
Author Organization [facility] Address [facility] [place] [address] Care Team Providers Care Business Teacher Name Role Phone Janay Briones APRN Primary Care Provider [phone] Reason for Visit * Consultation (Routine) - Closed Specialty Diagnoses / Procedures Referred By Lc castillo Referred To Contact Dermatology Diagnoses Other alopecia areata Janay Briones APRN [address] [place] [address] [facility] Dermatology [address] [place] [address] Referral ID Status Reason Start Date Expiration Date V isits Requested Visits Authorized [id number] Closed Consult, Test & Treat PCP Updated and/or Approved 08/06/2023 02/06/2024 1 1 Encounter Details Date Type Department Care Team (Late st Contact Info) Description 09/11/2023 10:00 AM EDT Office Visit Dermatology at [facility] [address] [place] [address] Regla Schneider MD [facility] [address] [place] [address] Alopecia areata Social History Tobacco [...] // sooner as needed []Note routed to company secretary []Recall placed in scheduling system [x]Appointment scheduled at checkout Scribe attestation: PRANAV Zuniga has performed the documentation for this encounter in the presence of and acting as a scribe for Regla Schneider MD. I performed the above scribed service and agree with the accuracy of the documentation in this encounter. Reviewed and signed by: Regla Schneider MD Dermatology [facility] documented in this encounter Plan of Treatment Not on file documented as of this encounter Visit Diagnoses Diagnosis Alopecia areata documented in this encounter Care Teams Business Teacher Relationship Specialty Start Date End Date Janay Briones [place] [address] [place] [address] PCP - General Family Medicine 08/13/23 documented as of this encounter
--- OUTSIDE RECORDS SUMMARY | 2023-12-19 06:09 | XMS_ITS | Encounter Summary ---
Author Organization [facility] Address [facility] [place] [address] Care Team Providers Care Plant Machinist Name Role Phone Unavailable Primary Care Provider Unavailabl e Encounter Details Date Type Department Care Team (Late st Contact Info) Description 03/16/2010 2:20 PM EDT - 03/16/2010 11:59 PM EDT Hospital Encounter ZUNSCHEDULED Ankush Tracey MD [facility] [place] [address] Discharge Disposition: Home Social History Tobacco Use [...]
--- OUTSIDE RECORDS SUMMARY | 2023-12-19 06:09 | XMS_ITS | Encounter Summary ---
Author Organization [facility] Address [facility] [place] [address] Care Team Providers Care Dye Boarding Machine Operator Name Role Phone Manuel Aguirre MD Primary Care Provider [phone] Encounter Details Date Type Department Care Team (Late st Contact Info) Description 09/20/2010 1:49 PM EDT - 09/20/2010 11:59 PM EDT Hospital Encounter XRay at [address] [place] [address] Social History Tobacco Use Types Packs/Day Years Used Date Smoking Tobacco: Never Assessed Sex and Gender Information Value Date Recorded Sex Assigned at Not on file Gender Identity Not on file Sexual Orientation Not on file documented as of this encounter Plan of Treatment Not on file documented as of this encounter Visit Diagnoses Not on filedocumented in this encounter Care Teams Dye Boarding Machine Operator Relationship Specialty Start Date End Date Manuel Aguirre MD [address] [place] [address] PCP - General 04/10/10 01/04/16 documented as of this encounter
--- OUTSIDE RECORDS SUMMARY | 2023-12-19 06:09 | XMS_ITS | Encounter Summary ---
Author Organization Formerly [facility] [place] [address] Care Team Providers Care Radar Scientist Name Role Phone Janay Briones APRN Primary Care Provider [phone] Reason for Referral * Consultation (Routine) - Closed Specialty Diagnoses / Procedures Referred By Lc t Referred To Contact Dermatology Diagnoses Other alopecia areata Janay Briones APRN [address] [place] [address] [facility] Dermatology [address] [place] [address] Referral ID Status Reason Start Date Expiration Date V isits Requested Visits Authorized [id number] Closed Consult, Test & Treat PCP Updated and/or Approved 08/06/2023 02/06/2024 1 1 Encounter Details Date Type Department Care Team (Latest Contact Info) Description 08/13/2023 Transcribe Orders eDH Incoming Referrals [phone] Janay Briones APRN [address] [place], [place] [id number] Other alopecia areata Social History Tobacco Use [...] areata documented in this encounter Care Teams Radar Scientist Relationship Specialty Start Date End Date Janay Briones, TUBE SPLICER [facility] [place] [address] [place] [address] PCP - General Family Medicine 08/13/23 documented as of this encounter
--- OUTSIDE RECORDS SUMMARY | 2023-12-19 06:09 | XMS_ITS | Encounter Summary ---
Author Organization [facility] Address [facility] [place] [address] Care Team Providers Care Railway Signal Technician Name Role Phone Manuel Aguirre MD Primary Care Provider [phone] Encounter Details Date Type Department Care Team (Late st Contact Info) Description 09/20/2010 Orders [place] [address] Sohan Huggins MD [facility] [place] [address] Social History Tobacco Use Types Packs/Day Years [...] on filedocumented in this encounter Care Teams Railway Signal Technician Relationship Specialty Start Date End Date Manuel Aguirre MD [address] [place] [address] PCP - General 04/10/10 01/04/16 documented as of this encounter
--- OUTSIDE RECORDS SUMMARY | 2023-12-19 06:09 | XMS_ITS | Encounter Summary ---
Author Organization [facility] Address [facility] [place] [address] Care Team Providers Care Mobile Qa Tester Name Role Phone Janay Briones APRN Primary Care Provider [phone] Reason for Visit * Reason Onset Date Comments Medication Refill 09/11/2023 Encounter Details Date Type Department Care Team (Late st Contact Info) Description 09/11/2023 Refill Dermatology at [facility] [address] [place] [address] Regla Schneider MD [facility] [address] [place] [place] [address] Social History Tobacco Use Types Packs/Day Years Used Date Smoking Tobacco: Never Assessed Sex and Gender Information Value Date Recorded Sex Assigned at Not on file Gender Identity Not on file Sexual Orientation Not on file documented as of this encounter Plan of Treatment Not on file documented as of this encounter Visit Diagnoses Not on filedocumented in this encounter Care Teams Mobile Qa Tester Relationship Specialty Start Date End Date Janay Briones [place] [address] [place] [address] PCP - General Family Medicine 08/13/23 documented as of this encounter
--- OUTSIDE RECORDS SUMMARY | 2023-12-19 06:09 | XMS_ITS | Encounter Summary ---
Author Organization [facility] Address [facility] [place] [address] Care Team Providers Care Reinforcement Maker Name Role Phone Manuel Aguirre MD Primary Care Provider [phone] Reason for Visit * Reason Comments Right Wrist Fracture DOI 02/16/10 Encounter Details Date Type Department Care Team (Late st Contact Info) Description 09/20/2010 2:40 PM EDT [place] [id number] Ankush Tracey MD [facility] [place] [address] Fracture, radius (Primary Dx) Discharge Disposition: Home [...] (alone) documented in this encounter Care Teams Reinforcement Maker Relationship Specialty Start Date End Date Manuel Aguirre MD [address] [place] [address] PCP - General 04/10/10 01/04/16 documented as of this encounter
--- OUTSIDE RECORDS SUMMARY | 2023-12-19 06:09 | XMS_ITS | Encounter Summary ---
[place] [address] Care Team Providers Care Commissions Coordinator Name Role Phone Janay Briones APRN Primary Care Provider [phone] Encounter Details Date Type Department Care Team [...] on filedocumented in this encounter Care Teams Commissions Coordinator Relationship Specialty Start Date End Date Janay Briones APRN [address] [place], [place] [id number] PCP - General Family Medicine 08/13/23 documented as of this encounter
--- OUTSIDE RECORDS SUMMARY | 2023-12-19 06:09 | XMS_ITS | Encounter Summary ---
Author Organization [facility] Address [facility] [place] [address] Care Team Providers Care Production Grip Name Role Phone Janay Briones APRN Primary Care Provider [phone] Encounter Details Date Type Department Care Team (Late st Contact Info) Description 09/11/2023 Telephone Dermatology at [facility] [address] [place] [address] Regla Schneider MD [facility] [address] [place] [address] Social History Tobacco Use Types Packs/Day Years [...] medications be change to [facility] in [facility]. documented in this encounter Plan of Treatment Not on file documented as of this encounter Visit Diagnoses Not on filedocumented in this encounter Care Teams Production Grip Relationship Specialty Start Date End Date Janay Briones, [place] [address] PCP - General Family Medicine 08/13/23 documented as of this encounter
--- OUTSIDE RECORDS SUMMARY | 2023-12-19 06:09 | XMS_ITS | Clinical Summary ---
Author Organization [facility] Address [facility] [place] [address] Care Team Providers Care Assessment Specialist Name Role Phone Janay Briones APRN Primary Care Provider [phone] Allergies Active Allergy Reactions Criticality Noted Date [...] - Influenza standard series) 01/18/2024 Care Teams Assessment Specialist Relationship Specialty Start Date End Date Janay Briones, DISPATCH OFFICER [address] [place], [place] [id number] PCP - General Family Medicine 08/13/23
--- NOTE | 2023-12-19 06:18 | W.ANESPRE ---
General Info Date of Service Date Performed: 12/19/23 Height: 5 ft 11 in Weight: 154.221 kg Body Mass Index (BMI): 47.4 Surgical Procedure: Operation Date: 12/19/23 07:40 Proposed Procedure Side Surgeon p Finger I&D &Pinning, RIF Right Riley Flynn MD Meds Allergies and Home Medications Allergies Allergy/AdvReac Type Severity Reaction Status Date / Time morphine Allergy Mild rash,vomiti Verified 12/19/23 06:33 ng oxycodone HCl (From Percocet) Allergy Mild rash,vomiti Verified 12/19/23 06:33 ng Home Medication ?Medication ?Instructions ?Recorded omeprazole 40 mg capsule,delayed 40 mg PO DAILY #60 tab-caps 02/19/16 release hydrocodone 5 mg-acetaminophen 325 1 tab PO Q6H PRN Pain #15 tabs 05/23/17 mg tablet amoxicillin 875 mg-potassium 1 tab PO BID 12/18/23 clavulanate 125 mg tablet Current Visit Medications: Current Medications Generic Name Dose Route Start Last Admin Trade Name Freq PRN Reason Stop Dose Admin Acetaminophen 1,000 mg 12/19/23 06:00 Acetaminophen 500 Mg Tab PO 12/19/23 16:00 PREOP LUISA Celecoxib 400 mg 12/19/23 06:00 Celecoxib 200 Mg Cap PO 12/19/23 16:00 PREOP LUISA Ringer's Solution 1,000 mls @ 80 mls/hr 12/19/23 06:00 IV 01/17/24 23:59 [facility] Cefazolin Sodium 3,000 mg/ 100 mls @ 200 mls/hr 12/19/23 06:00 Sodium Chloride IVPB 12/19/23 16:00 [facility] IV Miscellaneous Supplies 1 each 12/19/23 06:00 Iv Access IV 01/17/24 23:59 DIRECTED LUISA Sodium Chloride 0 ml 12/19/23 06:00 Normal Saline Flush 10 Ml Syr IV 01/17/24 23:59 PRN PRN Sodium Chloride 0 ml 12/19/23 06:00 Normal Saline 10 Ml Vial IJ 01/17/24 23:59 DIRECTED PRN Sterile Water 0 ml 12/19/23 06:00 Water,Injection,Sterile 10 Ml Vial IJ 01/17/24 23:59 DIRECTED PRN PFSH Active Problems Active Problems: Problem Status Onset Code Open fracture of proximal phalanx of right index finger Acute S62.610B Medical History Medical History History of fracture of clavicle Hx of fracture of wrist (B) Hx of fracture of femur Severe obesity Fracture of proximal phalanx of digit of hand (R) srew and plates, pins in situ Liver function test abnormality outside reference range Snoring Arthralgia of ankle or foot, left 5th metatarsal fx Non-scarring alopecia GERD without esophagitis Bilateral tinnitus Chronic alcoholism in remission Surgical History Surgical History fracture repairs Circumcision Tobacco Smoking/Tobacco Use Status: Former Tobacco Use Alcohol Alcohol Intake: current Alcohol intake frequency: a few times a week Substance Use Substance use: Never Substance use type: does not use Vital Signs and Lab Results Vital Signs Most Recent Vital Signs in EMR: Temp Pulse Resp BP Pulse Ox 37 C 74 16 138/83 97 12/19/23 06:36 12/19/23 06:36 12/19/23 06:36 12/19/23 06:36 12/19/23 06:36 Lab Results Blood Type / Crossmatch: No Data to Display Complete Blood Count: No Data to Display Complete Metabolic Panel: No Data to Display Liver Function Panel: No Data to Display Coagulation Panel: No Data to Display Cardiac Panel: No Data to Display Arterial Blood Gas: No Data to Display Venous Blood Gas: No Data to Display Pancreas Panel: No Data to Display Thyroid Panel: No Data to Display Infectious Disease: No Data to Display Blood Cultures: No Data to Display Toxicology Panel: No Data to Display Imaging and Studies Imaging and Studies Study information below may be from another EMR and interpreted by another provider. Please see original notes in EMR for more complete details. EKG Summary: 12/07: sinus. Anesthesia Assessment and Plan Anesthesia History Personal History: No History of Anesthesia Complications Family History: No Family History of Anesthesia Complications Exercise Tolerance Exercise Tolerance: Metabolic Equivalents>4 Cardiac & Pulmonary Exam Cardiac Exam: Normal S1/S2 Heart Sounds Pulmonary Exam: Clear Bilateral Breath Sounds Implantable Cardiac Device Does patient have a Pacemaker or an ICD?: No Airway Exam Known Difficult Airway: No Mallampati Class: 3 Mouth Opening: Normal (> 3cm) Thyromental Distance: Greater than 3 cm Neck Range of Motion: Full ROM Neck Circumference: Normal Teeth Condition: Normal Dentition ASA Classification ASA Score: ASA 3 Emergency Case?: No NPO Status NPO Status: NPO Clears >2 hours, Solids >8 hours Anesthesia Plan Resuscitation Status: Full Code Anesthesia Technique: General Anesthesia Airway Planned: Natural Airway Monitors Used: Standard Monitors Preoperative Comments:: 28 yo male for finger fixation. Sig PMHx: LUIS, GERD (omeprazole, well controlled), BMI >45, former EtOH abuse - currently occ.
[2023-12-19 06:36] VITALS: BP 138/83; PULSE 74; RESP 16; TEMP 37; O2SAT 97
[2023-12-19] MEDS: Acetaminophen 500 MG TAB 1000 MG PO (06:42)
[2023-12-19] MEDS: Celecoxib 200 MG CAP 400 MG PO (06:43)
[2023-12-19 06:51] VITALS: BMI 47.4
[2023-12-19] MEDS: Lactated Ringers 1,000 ML 80 ML IV (06:59)
--- NOTE | 2023-12-19 07:32 | HPE_ITS ---
Assessment and Plan Assessment and plan (1) Open fracture of proximal phalanx of right index finger: Status: Acute Assessment and plan: Blake is a 28-year-old sniwy-ordg-vavvlgss male who has an open fracture of his right index finger. This is 5 days old. It looks to be healing appropriately and what ever little infection was developing seems to be treated very quickly with the antibiotics. Nevertheless, I recommend urgent debridement and fixation of this fracture fragment. I am concerned about the health and viability of this fracture fragment given that it is primarily articular in nature. I reviewed the case with some hand colleagues who agreed with the current treatment plan and I recommend that we proceed with irrigation debridement and then fixation of the fracture fragment with the use of pins. My plan would be to reduce the articular fragment and hold it there with 1 or 2 small pins which I will then bury deep. This would then be supported by single K wire through the PIP and DIP joints to keep the finger in an extended position allowing the articular fragment to heal. I recommend that we do this for at least 4 to 6 weeks followed by PIP joint extension splinting. I reviewed all this with him. I discussed the risk to include bleeding, infection, pain, stiffness, fracture fragment necrosis, hardware failure, displacement, malunion, nonunion, need for repeat procedures, arthritis, damage to nerves and vessels, damage to muscle and tendons. Is also possible that he has some extensor tendon involvement which would be addressed at the time of surgery. All of his questions were answered. We will proceed this morning. History of Present Illness History of Present Illness Chief Complaint: Right index finger open fracture Narrative: Blake is a 28-year-old hirxk-frld-eyqdzdzt male who had been sharpening his lawnmower blades on Friday, approximate 5 days ago. He was putting the blades back on the lawnmower and in doing so his hand slipped off the wrench and his flexed right index finger hit the sawblade. He also had a laceration over the dorsum of the right middle finger. However, the right index finger was deep. He saw some tissue and pushed it back inside the skin and wrapped it up. He then began showing some signs of infection he was seen at [facility]. He was started on antibiotics and had x-ray and CT scan which demonstrated an open fracture involving the articular portion of the head of the proximal phalanx of the right index finger. Given this injury pattern I recommended urgent irrigation, debridement, and fixation. I called him to discuss this over the phone. He is here today for that procedure. He denies any changes to his medical history. He denies any recent health changes. He works for the [employer]. He reports many other orthopedic injuries although all are stable. His primary medical issue is GERD. He denies chest pain or shortness of breath. Review of Systems All systems reviewed & are unremarkable except as noted in HPI and below PFSH All Active Problems Open fracture of proximal phalanx of right index finger (Acute) Medical History History of fracture of clavicle Hx of fracture of wrist (B) Hx of fracture of femur Severe obesity Fracture of proximal phalanx of digit of hand (R) srew and plates, pins in situ Liver function 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 CA Mental disorder Depression and Anxierty Father Essential hypertension Other Diabetes Maternal grandmother diabetes. Essential hypertension Maternal and paternal grandparents. Heart disease Maternal and Paternal sides Hyperlipidemia PGM, PGM Social History Smoking/Tobacco Use Status: Former Tobacco Use Quit Date: 12/14/23 Smoking risk assessment performed?: Yes Alcohol Intake: current Alcohol Intake frequency: a few times a week Drug use: Never Substance use type: does not use Housing: house Do you feel safe at home: Yes (UTAP) Do you feel safe in your relationship?: Yes Meds Allergies and Home Medications Allergies Allergy/AdvReac Type Severity Reaction Status Date / Time morphine Allergy Mild rash,vomiti Verified 12/19/23 07:17 ng oxycodone HCl (From Percocet) Allergy Mild rash,vomiti Verified 12/19/23 07:17 ng Home Medications ?Medication ?Instructions ?Recorded ?Confirmed ?Type omeprazole 40 mg capsule,delayed 40 mg PO DAILY #60 tab-caps 02/19/16 12/19/23 History release hydrocodone 5 mg-acetaminophen 325 1 tab PO Q6H PRN Pain #15 tabs 05/23/17 12/18/23 Rx mg tablet amoxicillin 875 mg-potassium 1 tab PO BID 12/18/23 12/19/23 History clavulanate 125 mg tablet Exam Const General: cooperative, comfortable, no acute distress and well developed Resp Effort & Inspection: normal respiratory effort Auscultation: clear to auscultation bilaterally Cardio Rate: regular rate Rhythm: regular rhythm Extrem Other: Evaluation of the right hand shows 2 well-approximated and healing lacerations over the dorsum of the index finger and the middle finger. Both are slightly curvilinear in nature overlying the extension creases of the index and middle finger PIP joints. The middle finger shows full extension and full flexion with FDP, FDS, and EDC intact. Ray test is difficult to appreciate. It does seem to have some stiffness of the DIP joint although there is no lag with extension with the wrist extended. The index finger shows prominence about the distal aspect of the proximal phalanx with a healing laceration. Capillary refill less than 2 seconds. Sensation intact light touch of the median, radial, ulnar nerve. Results Imaging Imaging Studies: X-ray of the right hand and index finger shows a displaced fracture fragment about the dorsum of the right index finger. It is difficult to appreciate the location of this fractures origin. No joint subluxation. No other fractures apparent. CT scan of the right hand demonstrates a dorsal radial fracture of the articular surface of the head of the proximal phalanx of the index finger which is displaced proximally. Last Vital Signs Temp 37 C 12/19/23 06:36 Pulse 74 12/19/23 06:36 Resp 16 12/19/23 06:36 BP 138/83 12/19/23 06:36 Pulse Ox 97 12/19/23 06:36
[2023-12-19] MEDS: ceFAZolin 3,000 MG in Normal Saline 100 ML 200 MG IVPB (07:37)
--- NOTE | 2023-12-19 07:38 | W.PM.DSUDISC ---
Date of service: 12/19/23 Time of Service: 07:39 Discharge Plan Disposition Patient Disposition: Home Condition: Improving Discharge Details Reason For Visit: Open Right Index Finger Fracture Attending Provider: Riley Flynn Primary Care Provider: GAGAN ELLINGTON Home Meds and New Rx's Prescriptions: New celecoxib 200 mg capsule 200 mg PO BID PRN (Reason: pain) Qty: 60 1RF acetaminophen 500 mg tablet 1,000 mg PO Q8H PRN (Reason: pain) Qty: 90 3RF Continued omeprazole 40 MG capsule,delayed release(DR/EC) 40 mg PO DAILY Qty: 60 hydrocodone-acetaminophen 1 TAB tablet 1 tab PO Q6H PRN (Reason: Pain) Qty: 15 0RF Patient Comments: 12/19/23: pt reports he has never taken this medication. FS RN 12/19/23, 6:36am amoxicillin-pot clavulanate 875-125 mg tablet 1 tab PO BID Discharge Instructions Additional Instructions: Finger Fracture Discharge Instructions Activity: You should keep the hand elevated as much as possible for the first few days. You may use the other fingers as tolerated but avoid trying to do too much too soon. You may perform light activities with the finger but do not try to do too much. You have no formal restrictions but resist the tendency to try and bend the finger against the pin. Dressing/Cast: Your dressing should stay on for at least 3-5 days. You may choose to leave it on until follow-up in the office. Please keep it clean and dry. Keep the wound covered with a light gauze or bandaid at a minimum. Medications: - You should take Tylenol and Celebrex for baseline pain control. Celebrex is like Ibuprofen but should be easier on your stomach with your history of GERD. - You have Hydrocodone for breakthrough pain although you do not need to take this if pain is controlled. - You should continue your antibiotics until they are completed. - You may apply ice over the finger. Follow-up: ~7 days Stand Alone Forms: Anesthesia Discharge Inst., Sangeetha Lopez ([facility]) Referrals: Riley Flynn MD [ [facility] STAFF PHYSICIAN] - 12/26/23 8:00 am Equipment/Supplies: Splint Activity:: Elevate Remove Dressings/Wound Care:: Do Not Remove Shower/Bathe:: Cover Diet:: As Tolerated Discharge Orders Discharge Orders: Discharge Order (Routine); Ordered 12/19/23 Ordered By: Riley Flynn DS: Diagnosis Discharge Diagnosis (1) Open fracture of proximal phalanx of right index finger: Status: Acute
[2023-12-19] MEDS: Bupivacaine 0.5% Pres-Free 30 ML VIAL (08:01)
[2023-12-19] MEDS: Lidocaine 1% Pres-Free 30 ML VIAL (09:04)
[2023-12-19] MEDS: Sodium Bicarbonate 50 MEQ/50 ML VIAL (09:04)
[2023-12-19 09:15] VITALS: BP 122/78; PULSE 82; RESP 18; TEMP 36.5; O2SAT 94
--- NOTE | 2023-12-19 09:16 | W.PM.OP ---
Date of service: 12/19/23 Time of Service: 07:45 Operative Note Operative Note DATE OF PROCEDURE: 12/19/23 PRE-OP DIAGNOSIS: Open right index finger fracture involving the head of the proximal phalanx PROCEDURE: Irrigation and debridement of right index finger open fracture, open reduction internal fixation of right index finger proximal phalanx articular fracture SURGEON: Riley Flynn ANESTHESIA TYPE: General:No Airway and Primary Nerve Block Refer to Anesthesia Record ESTIMATED BLOOD LOSS: 15 TOURNIQUET TIME: 30 COMPLICATIONS: None Patient was transported to: same day Patient's condition: stable Indications: Blake is a 28-year-old who cut his hand while replacing his lawnmower blades. He tried to treat this on his own despite there being an obvious bony defect seen in the wound. Eventually, he was seen at [facility] who referred him to me with an open index finger fracture involving the head of the proximal phalanx. I recommended proceeding urgently with open reduction internal fixation along with irrigation debridement of the open fracture. I discussed the risk of the surgery to include bleeding, infection, pain, stiffness, arthritis, malunion, nonunion, right prominence, hardware failure, need for repeat procedures. Despite these risks, he elected to proceed. Findings: There is a healing laceration over the dorsum of the PIP joint of the right index finger. There is involvement of the ulnar aspect of the extensor tendon although the extensor tendon was not fully transected nor detached from the middle phalanx. The articular fragment was seen directly below the skin with a very small amount of periosteum or synovium still attached. The fragment was able to be reduced and secured with 2 0.035 inch K wires. The finger was kept in an extended position with a 0.062 inch K wire. Procedure Description: Blake was greeted in the preoperative holding area. His identity was confirmed the correct site was identified and marked. The consent was reviewed the patient and signed. History and physical was updated. He was taken to the operating room where he was kept in the supine position on the stretcher with the right arm placed onto a hand table. Prophylactic and a biotics in the form of cefazolin were given. The right arm was prepped ChloraPrep and draped in a standard fashion. A timeout is performed for safe surgery. The previous laceration, slightly curved over the dorsum of the PIP joint the right index finger was marked to be extended longitudinally proximally and distally. I then performed a digital block of the right index finger utilizing lidocaine with epinephrine buffered sodium bicarbonate as well as bupivacaine. A general, uninstrumented airway, anesthetic was also utilized. I then proceeded with dissection extending the laceration proximally distally. This was taken over the ulnar aspect of the dorsum of the finger to avoid direct incision over the extensor tendon. Deeper dissection was carried through the skin and subcutaneous tissue. There is a notable defect of the ulnar aspect of the extensor tendon and the capsule. The articular fragment was directly below the area of laceration. This was opened up and tissues were retracted. Given some ooze in the area I then placed a Estelita drain tourniquet around the base of the finger which stayed for approximately 30 minutes. There is a small amount of periosteum and synovium attached to the base of this articular fragment. However, it was quite small, approximately 3 mm in thickness by 5 x 6 mm. The extensor tendon was elevated slightly over the middle phalanx which allow me to Hyperflex the PIP joint exposing the head of the proximal phalanx. Thorough irrigation of 500 cc of normal saline was performed to this area. However, there is no gross signs of infection. No debris. No purulence. The fracture bed was debrided of any early fibrous tissue. Keeping the periosteal attachment still in place I was able to manipulate the fracture fragment and placed it into its donor site bed. There was minimal bone to work with but there was a slight amount just beyond the margin of the articular surface which is where I plan to place K wires so they would be out of the way of the joint. With the finger hyperflexed exposing the proximal phalanx head and at the fracture and articular segment reduced with direct visualization, dental pick was used to hold this in place while a 0.035 inch K wire was inserted. This was taken through the fragment and into the head of the proximal phalanx until there was a obvious purchase of second cortex. This seemed to hold the reduction quite well. While there was little real estate I placed a second 0.035 inch K wire slightly more palmarly. This also was placed into the second cortex which secured the fragment in place. Directly visualized in the fracture showed that the articular surface was well-approximated. There may be some very slight offset of the bone adjacent to the articular surface but the articular surface was well approximated without any gapping. X-ray was utilized to show appropriate positioning of the fracture fragments. The K wires were backed out so that they were still in that second cortex but not penetrating beyond. Once content with the position of those K wires, they were cut flush with the surface of the ulnar side of the proximal phalanx head. I felt that this would provide better security to leave these in place out of the way of finger flexion. The finger was taken through full flexion and showed no signs of irritation or impingement on the K wires. Then, I placed a 0.062 inch K wire from the base of the middle phalanx out the end of the finger. Once this was pulled out the finger it was then retrograde inserted back into the proximal phalanx. This was Slightly extended in order to gain access into the canal of the finger. It was advanced across the proximal phalanx and the fracture was identified and showed no signs of displacement. This was then anchored into the base of the proximal phalanx. X-rays were used to confirm appropriate maintenance of reduction and positioning of the K wire. This K wire was then cut and a Jurgan ball was placed. The wound was once again thoroughly irrigated. The Estelita drain tourniquet was removed. There was no significant bleeding. The extensor tendon and capsule was reapproximated with a 3-0 Vicryl. I then closed the skin and subcutaneous tissues with a 4-0 nylon. Xeroform was placed over the wound as well as around the base of the pin. The finger is wrapped with gauze and conformer dressing. At the end the case all counts were correct. He was awakened from his anesthetic and taken back to the day surgery area in stable condition. He will continue on his Augmentin for the course of treatment, an additional 5 days. I will see him back in the office in 1 week.
--- NOTE | 2023-12-19 09:25 | DI.RAD_ITS ---
Exam(s) XR HAND RT LIMITED EXAM: XR HAND RT LIMITED CLINICAL HISTORY: Closed Fracture of Right Index Finger. TECHNIQUE: 2D and realtime digital imaging was performed. COMPARISON: CR XR FINGER RT INDEX from 12/17/2023 FINDINGS: Hard copy images show placement 2 pins through the fracture at the head of the proximal phalanx. A l ongitudinally oriented pin is noted through the entire index finger. Please see procedure note for details. Fluoro time: 12.0seconds RADIATION DOSE DELIVERED: faith Potts=0.98 mGy
[2023-12-19 09:45] VITALS: BP 126/86; PULSE 80; RESP 16; TEMP 36.4; O2SAT 94
--- NOTE | 2023-12-19 09:45 | W.ANESPOSTOP ---
Postoperative Evaluation Date, Time and Location Date Performed: 12/19/23 Time Performed: 09:45 Patient Location: Day Surgery Unit Vital Signs Most Recent Imported Vital Signs: Most Recent Vital Signs Temp Pulse Resp BP Pulse Ox 36.5 C 82 18 122/78 94 12/19/23 09:15 12/19/23 09:15 12/19/23 09:15 12/19/23 09:15 12/19/23 09:15 Pain Score Most Recent Pain Score: Most Recent Pain Score Pain Level 0 12/19/23 09:15 Assessment Mental Status: Awake (Alert & Oriented to Patient Baseline) Airway and Respiratory Function: Patent airway with normal (patient baseline) respiratory exam Cardiovascular Function: Hemodynamically Stable Hydration Status: Adequately Hydrated Nausea & Vomiting: No Nausea or Vomiting Pain: Pt. Denies Any Pain Peripheral Nerve Block: Patient did not receive a nerve block
== END 2023-12-19 09:56 | disposition home or self-care (01) ==
PROVIDERS: PCP Nurse Practitioner Family; Visit Provider Student in an Organized Health Care Education/Training Program
PROC: (CPT 26727; principal; 2023-12-19 07:30)
DX: S62.610B Displaced fracture of proximal phalanx of right index finger, initial encounter for open fracture (principal); W30.89XA Contact with other specified agricultural machinery, initial encounter; E66.01 Morbid (severe) obesity due to excess calories; K21.9 Gastro-esophageal reflux disease without esophagitis; F10.21 Alcohol dependence, in remission
CPT/HCPCS: 26746; 11010; 76000; 73120; J0665; J0690; J1100; J2250; J2371; J2405; J2704; J3010

== ENCOUNTER 2023-12-26 08:19 | Outpatient (CLI) | payer BC, SELFPAY ==
--- NOTE | 2023-12-26 08:00 | DI.RAD_ITS ---
Exam(s) XR FINGER RT INDEX EXAM: XR FINGER RT INDEX CLINICAL HISTORY: S/P ORIF R INDEX FINGER. TECHNIQUE: 2D digital imaging was performed. COMPARISON: CR XR FINGER RT INDEX from 12/17/2023 CR XR HAND RT LIMITED from 12/19/2023 FINDINGS: 3 views There is no lung truly orientated pin through the phalanges of the index finger and there are 2 short er pins across the fracture site in the head the of the proximal phalanx. Alignment appears satisfac tory at the fracture site. IMPRESSION: Satisfactory appearance DATA REPOSITORY: RADIATION DOSE DELIVERED:
== END 2023-12-26 08:20 | disposition home or self-care (01) ==
LOC: DIORS 08:19
PROVIDERS: PCP Nurse Practitioner Family; Referring Provider Nurse Practitioner Family; Visit Provider Physician Assistant
DX: S62.610B Displaced fracture of proximal phalanx of right index finger, initial encounter for open fracture (principal)
CPT/HCPCS: 73140

== ENCOUNTER 2024-01-01 10:26 | Outpatient (CLI) | payer BC, SELFPAY ==
--- NOTE | 2024-01-01 08:26 | DI.RAD_ITS ---
Exam(s) XR FINGER RT INDEX EXAM: XR FINGER RT INDEX CLINICAL HISTORY: Right index finger frx. TECHNIQUE: 2D digital imaging was performed. Two images were obtained. PA/AP and lateral views were obtained. COMPARISON: CR XR FINGER RT INDEX from 12/17/2023 CR XR FINGER RT INDEX from 12/26/2023 FINDINGS: BONES: There again seen postsurgical changes of internal fixation of the fracture involving the head of the proximal phalanx of the index finger. There is a percutaneous pin traversing the DIP and PIP joints which appears stable. No new fracture or dislocation. JOINTS: The joint spaces are well maintained. SOFT TISSUE: There is soft tissue swelling present. IMPRESSION: Stable postoperative changes. DATA REPOSITORY: RADIATION DOSE DELIVERED:
== END 2024-01-01 10:27 | disposition home or self-care (01) ==
LOC: DIORS 10:26
PROVIDERS: PCP Nurse Practitioner Family; Visit Provider Student in an Organized Health Care Education/Training Program
DX: S62.610D Displaced fracture of proximal phalanx of right index finger, subsequent encounter for fracture with routine healing (principal); X58.XXXD Exposure to other specified factors, subsequent encounter
CPT/HCPCS: 73140

== ENCOUNTER 2024-01-09 18:18 | Emergency (ER) | payer BC, SELFPAY ==
[2024-01-09 18:22] VITALS: BP 152/96; PULSE 99; RESP 18; TEMP 36.2; O2SAT 96
--- NOTE | 2024-01-09 18:36 | ED.GENADUL_ITS ---
Discharge Plan Disposition Patient Disposition: Home Condition: Stable Discharge Details Clinical Impression: Open fracture of proximal phalanx of right index finger, Cellulitis Primary Care Provider: GAGAN ELLINGTON ED Provider: Apple Sanchez Home Meds and New Rx's Prescriptions: New cephalexin 500 mg capsule 500 mg PO QID 7 Days Qty: 28 0RF sulfamethoxazole-trimethoprim [Bactrim DS] 800-160 mg tablet 1 tab PO Q12H Qty: 14 0RF No Action ibuprofen 800 mg tablet 800 mg PO Q6H omeprazole 40 MG capsule,delayed release(DR/EC) 40 mg PO DAILY Qty: 60 ciprofloxacin HCl 750 mg tablet 750 mg PO BID 3 Days Qty: 6 0RF acetaminophen 500 mg tablet 1,000 mg PO Q8H PRN (Reason: pain) Qty: 90 3RF Discharge Instructions Instructions: Cellulitis (Skin Infection), Adult ED Additional Instructions: You were seen in the emergency department today for evaluation of infection of the finger after operation, had a full physical examination and certainly have evidence of cellulitis with purulent drainage (pus). An x-ray that could not rule out osteomyelitis, a serious infection of the bone. We did attempt to get in contact with the orthopedic surgeon to discuss your imaging and unfortunately were unable to do so. We have changed your antibiotics and you should stop taking your ciprofloxacin. You should keep your follow-up visit on Friday with your orthopedic surgeon, but should certainly return to the emergency department if you have worsening of your redness, swelling, and discharge, or develop fevers or chills. Thank you for allowing us to be part of your care. HPI General Mode of arrival: ambulatory . Date/Time Provider Initiated Documentation: 01/09/24 18:19 . Limitations to Documentation: no limitations . Information obtained by: patient and old records reviewed . HPI Narrative: MDM: In brief, this is a 28-year-old male patient presenting for evaluation of a post operative finger infection. Differential includes but is not limited to cellulitis, abscess, Osteomyelitis, considered hardware infection. The patient is reassuringly without systemic symptoms to suggest bacteremia, sepsis. Wound culture was obtained, we will obtain laboratory studies to include CBC, CMP, CRP, ESR, will obtain an x-ray of the affected finger. ED Course: I reviewed the laboratory studies, which show no leukocytosis, anemia or thrombocytopenia. Chemistry panel without electrolyte derangement, evidence of kidney dysfunction or liver injury. CRP is not elevated, ESR very slightly elevated above our baseline, 27. X-ray imaging was obtained, showing no migration of hardware, demonstrating with soft tissue swelling, and per radiologist read cannot exclude osteomyelitis given a new small lucency/fragment. For this reason, as we do not have an on- call orthopedic surgeon at [facility], I reached out to orthopedic hand with [facility], but unfortunately did not receive a call back after 2 pages and 90 minutes, at which time the patient reported that he no longer desired to wait in the emergency department for their input. I did provide him with prescriptions for Keflex and Bactrim, to cover the gram-positive cocci that were noted on Gram stain of the wound culture. He has follow-up with orthopedics on Friday, and understands that if he is to develop worsening redness, swelling, discharge, or develop fever he should return to the emergency department immediately. The patient is understanding of the risks associated with undiagnosed osteomyelitis, and feels comfortable making the decision to leave the emergency department, and understands follow-up plan and return precautions.. He remained hemodynamically appropriate, ambulatory, and tolerating p.o. intake. He left our facility without incident. Apple Sanchez MD HPI: This is a 28-year-old male patient with a past medical history most notable for an open fracture of his right proximal phalanx of the second digit. He had ORIF on the second of this month, and has been following with orthopedics. He reports that on Friday he started to notice some redness and a small pimple-like lesion, was started on ciprofloxacin which he has been taking. He has noted worsening of this area over the course of the week, did notice rupture of the pimple-like structure with soaking in a hydrogen peroxide solution per orthopedics recommendation. States that he has had occasional chills but has not measured fever. He states that he was concerned that the antibiotics were not working prompting his presentation to care. The patient has otherwise been in his normal state of health. He is not utilizing any medications for management of pain at this time. Exam: Gen: Awake and alert, in no apparent distress HEENT: Non-icteric sclera Neck: Supple Lungs: No apparent respiratory distress, normal respiratory effort. CV: Appears well perfused Abdomen: Non-distended MSK: Moves 4 extremities without apparent limitation in ROM. The patient's right index finger has pins, dorsal aspect of the hand has a small ulceration with scant purulent discharge at the level of the PIP, which was sent for culture. The patient has tenderness to palpation of the dorsal aspect of the digit, with some surrounding redness. Skin: Visualized skin without rashes, cyanosis. Neuro: Normal Gait, no obvious focal deficits or facial asymmetry. Speaks in full, clear sentences. Psych: Appropriate for situation. Related Data Home Medications ?Medication ?Instructions ?Recorded ?Confirmed omeprazole 40 mg capsule,delayed 40 mg PO DAILY #60 tab-caps 02/19/16 01/01/24 release acetaminophen 500 mg tablet 1,000 mg (2 x 500 mg) PO Q8H PRN 12/19/23 01/01/24 pain #90 tabs ibuprofen 800 mg tablet 800 mg PO Q6H 12/26/23 01/01/24 cephalexin 500 mg capsule 500 mg PO QID 7 days #28 caps 01/09/24 ciprofloxacin HCl 750 mg tablet 750 mg PO BID 3 days #6 tabs 01/09/24 sulfamethoxazole 800 1 tab PO Q12H #14 tabs 01/09/24 mg-trimethoprim 160 mg tablet (Bactrim DS) Previous Rx's ?Medication ?Instructions ?Recorded acetaminophen 500 mg tablet 1,000 mg (2 x 500 mg) PO Q8H PRN 12/19/23 pain #90 tabs cephalexin 500 mg capsule 500 mg PO QID 7 days #28 caps 01/09/24 ciprofloxacin HCl 750 mg tablet 750 mg PO BID 3 days #6 tabs 01/09/24 sulfamethoxazole 800 1 tab PO Q12H #14 tabs 01/09/24 mg-trimethoprim 160 mg tablet (Bactrim DS) Allergies Allergy/AdvReac Type Severity Reaction Status Date / Time morphine Allergy Mild rash,vomiti Verified 01/01/24 08:02 ng oxycodone HCl (From Percocet) Allergy Mild rash,vomiti Verified 01/01/24 08:02 ng General Stated Complaint: Cellulitis GILLIAN: 3 Course Vital Signs Vital signs: Vital Signs Temperature 36.2 C L 01/09/24 18:22 Pulse 99 H 01/09/24 18:22 Respiratory Rate 18 01/09/24 18:22 Blood Pressure 152/96 H 01/09/24 18:22 Pulse Oximetry 96 01/09/24 18:22 Temperature 36.2 C L 01/09/24 18:22 Pulse 99 H 01/09/24 18:22 Respiratory Rate 18 01/09/24 18:22 Blood Pressure 152/96 H 01/09/24 18:22 Blood Pressure Position Supine 01/09/24 18:22 Pulse Oximetry 96 01/09/24 18:22 Oxygen Delivery Method Room Air 01/09/24 18:22 Oxygen Flow Rate 0 01/09/24 18:22 Medical Decision Making Quality:SDOH Health Related Social Needs: No Data to Display PFSH All Active Problems (Updated 01/09/24 @ 22:54 by Apple Sanchez MD) Cellulitis (Acute) Open fracture of proximal phalanx of right index finger (Acute) S/P ORIF DOS: 12/19/2023 Medical History History of fracture of clavicle Hx of fracture of wrist (B) Hx of fracture of femur Severe obesity Fracture of proximal phalanx of digit of hand (R) srew and plates, pins in situ Liver function 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 CA Mental disorder Depression and Anxierty Father Essential hypertension Other Diabetes Maternal grandmother diabetes. Essential hypertension Maternal and paternal grandparents. Heart disease Maternal and Paternal sides Hyperlipidemia PGM, PGM Social History Smoking/Tobacco Use Status: Former Tobacco Use Quit Date: 12/14/23 Smoking risk assessment performed?: Yes Alcohol Intake: current Alcohol Intake frequency: a few times a week Drug use: Never Substance use type: does not use Housing: house Do you feel safe at home: Yes ([facility]) Do you feel safe in your relationship?: Yes
--- OUTSIDE RECORDS SUMMARY | 2024-01-09 19:13 | XMS_ITS | Encounter Summary ---
Author Organization [facility] Address [facility] [place] [address] Care Team Providers Care Inspector Bicycle Name Role Phone Manuel Aguirre MD Primary Care Provider [phone] Encounter Details Date Type Department Care Team (Late st Contact Info) Description 09/20/2010 Orders [place] [address] Sohan Huggins MD [facility] [place] [address] Social History Tobacco Use Types Packs/Day Years [...] on filedocumented in this encounter Care Teams Inspector Bicycle Relationship Specialty Start Date End Date Manuel Aguirre MD [address] [place] [address] PCP - General 04/10/10 01/04/16 documented as of this encounter
--- OUTSIDE RECORDS SUMMARY | 2024-01-09 19:13 | XMS_ITS | Encounter Summary ---
Author Organization [facility] Address [facility] [place] [address] Care Team Providers Care Digital Manager Name Role Phone Manuel Aguirre MD Primary Care Provider [phone] Reason for Visit * Reason Comments Right Wrist Fracture DOI 02/16/10 Encounter Details Date Type Department Care Team (Late st Contact Info) Description 09/20/2010 2:40 PM EDT [place] [id number] Ankush Tracey MD [facility] [place] [address] Fracture, radius (Primary Dx) Discharge Disposition: Home [...] (alone) documented in this encounter Care Teams Digital Manager Relationship Specialty Start Date End Date Manuel Aguirre MD [address] [place] [address] PCP - General 04/10/10 01/04/16 documented as of this encounter
--- OUTSIDE RECORDS SUMMARY | 2024-01-09 19:13 | XMS_ITS | Encounter Summary ---
Author Organization [facility] Address [facility] [place] [address] Care Team Providers Care Supervisor Counseling And Guidance Name Role Phone Janay Briones APRN Primary Care Provider [phone] Reason for Visit * Reason Onset Date Comments Medication Refill 09/11/2023 Encounter Details Date Type Department Care Team (Late st Contact Info) Description 09/11/2023 Refill Dermatology at [facility] [address] [place] [address] Regla Schneider MD [facility] [address] [place] [address] Social History Tobacco Use Types Packs/Day Years Used Date Smoking Tobacco: Never Assessed Sex and Gender Information Value Date Recorded Sex Assigned at Not on file Gender Identity Not on file Sexual Orientation Not on file documented as of this encounter Plan of Treatment Not on file documented as of this encounter Visit Diagnoses Not on filedocumented in this encounter Care Teams Supervisor Counseling And Guidance Relationship Specialty Start Date End Date Janay Briones [place] [address] PCP - General Family Medicine 08/13/23 documented as of this encounter
--- OUTSIDE RECORDS SUMMARY | 2024-01-09 19:13 | XMS_ITS | Encounter Summary ---
Author Organization [facility] Address [facility] [place] [address] Care Team Providers Care Gem Cutter Name Role Phone Manuel Aguirre MD Primary Care Provider Encounter Details Date Type Department Care Team (Late st Contact Info) Description 09/20/2010 1:49 PM EDT - 09/20/2010 11:59 PM EDT Hospital Encounter XRay at [address] [place] [address] Social History Tobacco Use Types Packs/Day Years Used Date Smoking Tobacco: Never Assessed Sex and Gender Information Value Date Recorded Sex Assigned at Not on file Gender Identity Not on file Sexual Orientation Not on file documented as of this encounter Plan of Treatment Not on file documented as of this encounter Visit Diagnoses Not on filedocumented in this encounter Care Teams Gem Cutter Relationship Specialty Start Date End Date Manuel Aguirre MD [address] [place] [address] PCP - General 04/10/10 01/04/16 documented as of this encounter
--- OUTSIDE RECORDS SUMMARY | 2024-01-09 19:13 | XMS_ITS | Encounter Summary ---
Author Organization [facility] [place] [address] Care Team Providers Care Parts Product Analyst Name Role Phone Janay Briones APRN Primary Care Provider [phone] Reason for Referral * Consultation (Routine) - Closed Specialty Diagnoses / Procedures Referred By Lc t Referred To Contact Dermatology Diagnoses Other alopecia areata Janay Briones APRN [address] [place] [address] [facility] Dermatology [address] [place] [address] Referral ID Status Reason Start Date Expiration Date V isits Requested Visits Authorized [id number] Closed Consult, Test & Treat PCP Updated and/or Approved 08/06/2023 02/06/2024 1 1 Encounter Details Date Type Department Care Team (Latest Contact Info) Description 08/13/2023 Transcribe Orders eDH Incoming Referrals [phone] Janay Briones APRN [address] [place], [place] [id number] Other alopecia areata Social History Tobacco Use [...] areata documented in this encounter Care Teams Parts Product Analyst Relationship Specialty Start Date End Date Janay Briones, ATTORNEY LAW[employer]ER [facility] [place] [address] PCP - General Family Medicine 08/13/23 documented as of this encounter
--- OUTSIDE RECORDS SUMMARY | 2024-01-09 19:13 | XMS_ITS | Encounter Summary ---
Author Organization Replaced By [facility] Address [facility] [place] [address] Care Team Providers Care Basket Hand Braider Name Role Phone Unavailable Primary Care Provider Unavailabl e Encounter Details Date Type Department Care Team (Late st Contact Info) Description 03/16/2010 2:20 PM EDT - 03/16/2010 11:59 PM EDT Hospital Encounter ZUNSCHEDULED Ankush Tracey MD [facility] [place] [address] Discharge Disposition: Home Social History Tobacco Use [...]
--- OUTSIDE RECORDS SUMMARY | 2024-01-09 19:13 | XMS_ITS | Encounter Summary ---
Author Organization [facility] Address [facility] [place] [address] Care Team Providers Care Complex Commercial Litigation Paralegal Name Role Phone Janay Briones APRN Primary Care Provider [phone] Encounter Details Date Type Department Care Team (Late st Contact Info) Description 09/11/2023 Telephone Dermatology at [facility] [address] [place] [address] Regla Schneider MD [facility] [address] [place] [address] Social History Tobacco Use Types Packs/Day Years [...] medications be change to [facility] in [facility]. documented in this encounter Plan of Treatment Not on file documented as of this encounter Visit Diagnoses Not on filedocumented in this encounter Care Teams Complex Commercial Litigation Paralegal Relationship Specialty Start Date End Date Janay Briones, [place] [address] PCP - General Family Medicine 08/13/23 documented as of this encounter
--- OUTSIDE RECORDS SUMMARY | 2024-01-09 19:13 | XMS_ITS | Encounter Summary ---
Author [place] [address] Care Team Providers Care Game Technician Name Role Phone Janay Briones APRN Primary Care Provider [phone] Encounter Details Date Type Department Care Team [...] on filedocumented in this encounter Care Teams Game Technician Relationship Specialty Start Date End Date Janay Briones APRN [address] [place], [place] [id number] PCP - General Family Medicine 08/13/23 documented as of this encounter
--- OUTSIDE RECORDS SUMMARY | 2024-01-09 19:13 | XMS_ITS | Encounter Summary ---
Author Organization [facility] Address [facility] [place] [address] Care Team Providers Care Tree Planter Name Role Phone Janay Briones APRN Primary Care Provider [phone] Reason for Visit * Consultation (Routine) - Closed Specialty Diagnoses / Procedures Referred By Lc castillo Referred To Contact Dermatology Diagnoses Other alopecia areata Janay Briones APRN [address] [place] [address] [facility] Dermatology [address] [place] [address] Referral ID Status Reason Start Date Expiration Date V isits Requested Visits Authorized [id number] Closed Consult, Test & Treat PCP Updated and/or Approved 08/06/2023 02/06/2024 1 1 Encounter Details Date Type Department Care Team (Late st Contact Info) Description 09/11/2023 10:00 AM EDT Office Visit Dermatology at [facility] [address] [place] [address] [facility] [address] [place] [address] Alopecia areata Social History Tobacco [...] // sooner as needed []Note routed to nursing secretary []Recall placed in scheduling system [x]Appointment scheduled at checkout Scribe attestation: PRANAV Zuniga has performed the documentation for this encounter in the presence of and acting as a scribe for Regla Schneider MD. I performed the above scribed service and agree with the accuracy of the documentation in this encounter. Reviewed and signed by: Regla Schneider MD Dermatology [facility] documented in this encounter Plan of Treatment Not on file documented as of this encounter Visit Diagnoses Diagnosis Alopecia areata documented in this encounter Care Teams Tree Planter Relationship Specialty Start Date End Date Janay Briones [place] [address] [place] [address] PCP - General Family Medicine 08/13/23 documented as of this encounter
--- OUTSIDE RECORDS SUMMARY | 2024-01-09 19:13 | XMS_ITS | Clinical Summary ---
Author Organization [facility] Address [facility] [place] [address] Care Team Providers Care Cardboard Inserter Name Role Phone Janay Briones APRN Primary Care Provider [phone] Allergies Active Allergy Reactions Criticality Noted Date [...] - Influenza standard series) 01/18/2024 Care Teams Cardboard Inserter Relationship Specialty Start Date End Date Janay Briones, PATROL DRIVER [address] [place], [place] [id number] PCP - General Family Medicine 08/13/23
[2024-01-09 19:29] VITALS: BP 152/96; RESP 18; TEMP 36.2; O2SAT 99
[2024-01-09 19:38] LABS: Abs Immature Grans 0.02 10^3/uL (0.0-0.06); Absolute Basophil Count 0.04 10^3/uL (0.0-0.2); Absolute Eosinophil Count 0.18 10^3/uL (0.0-0.7); Absolute Lymphocyte Count 2.44 10^3/uL (1.2-3.4); Absolute Monocyte Count 0.71 10^3/uL (0.1-0.8); Absolute Neutrophil Count 6.28 10^3/uL (1.2-6.7); Basophils % 0.4 %; Eosinophils % 1.9 %; HCT 41.9 % (40.0-50.0); HGB 14.2 g/dL (13.5-17.5); Immature Grans % 0.2 %; Lymphocytes % 25.2 %; MCH 29.5 pg (27.0-33.0); MCHC 33.9 % (32.0-36.0); MCV 87 fL (80-95); MPV 9.8 fL (8.0-11.0); Monocytes % 7.3 %; Platelet Count 294 10^3/uL (130-400); RBC 4.81 10^6/uL (4.36-5.78); RDW-SD 38.7 fL; WBC 9.67 10^3/uL (4.4-10.8)
[2024-01-09 19:41] LABS: ESR 27 mm/hr (0-15)
--- NOTE | 2024-01-09 19:44 | DI.RAD_ITS ---
Exam(s) XR FINGER RT INDEX EXAM: XR FINGER RT INDEX CLINICAL HISTORY: post op infection. TECHNIQUE: 2D digital imaging was performed. Three views. COMPARISON: CR XR FINGER RT INDEX from 12/26/2023 CR XR FINGER RT INDEX from 01/01/2024 FINDINGS: BONES: Pin remains in place through the index finger. Two small pins noted through the head of the p roximal phalanx. The small fracture fragment is again visible. There is osteopenia of the head of t he proximal phalanx as well as some middle and distal phalanges compared with the previous exam. Noah dware is unchanged in position. no acute fracture is present. No bony destructive lesion is seen. Fagan rdware is also noted in the 4th metacarpal related to remote injury. Nonunited ulnar styloid fractur e also remote injury. JOINTS: No dislocation present. There is some narrowing of the proximal interphalangeal joint. SOFT TISSUE: Marked swelling. Rounded area of skin deformity seen dorsally at the level of the middl e phalanx. IMPRESSION: Soft tissue swelling and small skin deformity. No change in hardware or fracture alignment. No defi nite evidence of osteomyelitis. DATA REPOSITORY: RADIATION DOSE DELIVERED:
[2024-01-09 19:54] LABS: ALT 54 U/L (16-63); AST 31 U/L (15-37); Albumin 4.3 g/dL (3.4-5.0); Alkaline Phosphatase 79 U/L (46-116); Anion Gap 11.4 mmol/L (3-11); BUN 11 mg/dL (7-18); Bilirubin, Total 0.49 mg/dL (0.2-1.0); CO2 23.6 mmol/L (21.0-32.0); CREATININE 0.8 mg/dL (0.70-1.30); Calcium 9.8 mg/dL (8.5-10.1); Chloride 102 mmol/L (98-107); Estimated GFR 125.17 (mL/min/1.73m2); Glucose 97 mg/dL (74-106); Potassium 3.8 mmol/L (3.5-5.1); Sodium 137 mmol/L (136-145); Total Protein 8.4 g/dL (6.4-8.2)
[2024-01-09 19:55] LABS: C-Reactive Protein < 0.50 mg/dL (<or=0.5)
--- NOTE | 2024-01-09 20:25 | DI.VRAD_ITS ---
Addendum created by Laney Peguero MD on 01/09/2024 8:29:09 PM EDT: THIS REPORT CONTAINS FINDINGS THAT MAY BE CRITICAL TO PATIENT CARE. The findings were verbally communicated via telephone conference with Apple Sanchez at 8:28 PM EDT on 01/09/2024. The findings were acknowledged and understood. Per the ordering physician, the patient does have a vesicle/blister on the skin surface which likely corresponds to the rounded soft tissue density. Initial report created on 01/09/2024 8:24:28 PM EDT: PROCEDURE INFORMATION: Exam: XR Right Finger(s) Exam date and time: 01/09/2024 7:38 PM Age: 28 years old Clinical indication: Other: Post op infection; Prior surgery; Surgery date: 3-7 days post-operative; Surgery type: Pins TECHNIQUE: Imaging protocol: Radiologic exam of the right fingers. Views: Minimum 2 views. COMPARISON: CR XR FINGER RT INDEX 01/01/2024 8:25 AM FINDINGS: Bones/joints: Again seen is pin fixation of the index finger. There is no significant change in position or alignment of hardware. There appears to be new possible periosteal reaction/regional osteopenia and a small amount of possible fragmentation involving the distal proximal phalanx on series 2. Osteomyelitis is not excluded. Soft tissues: There is soft tissue swelling. On series 1, adjacent to the shaft of the middle phalanx, a vague 4 mm rounded density is identified which could represent a skin deformity. Clinical correlation is recommended. IMPRESSION: 1. No significant change in position or alignment of hardware involving the index finger. There appears to be new possible periosteal reaction/regional osteopenia and a small amount of possible fragmentation involving the distal proximal phalanx on series 2. Osteomyelitis is not excluded. If indicated, an MRI (if the patient is a candidate) or bone scan could be considered. 2. Soft tissue swelling. 3.On series 1, adjacent to the shaft of the middle phalanx, a vague 4 mm rounded density is identified which could represent a skin deformity. Clinical correlation is recommended. Dictated and Authenticated by: Laney Peguero MD. Ordering:ERICKA De La Vega MD
[2024-01-09] MEDS: Cephalexin 500 MG CAP PO (20:39)
[2024-01-09] MEDS: Cephalexin 500 MG CAP, 4 CAPS/BTL PO (20:39)
[2024-01-09] MEDS: Sulfameth/Trimeth DS, 2 TABS/BTL 1 TAB PO (20:39)
[2024-01-09] MEDS: Sulfameth/Trimeth DS TAB 1 TAB PO (20:39)
[2024-01-09 20:47] VITALS: BP 159/100; PULSE 88; RESP 18; TEMP 36.6; O2SAT 97
== END 2024-01-09 23:12 | disposition home or self-care (01) ==
PROVIDERS: Emergency Provider Emergency Medicine; PCP Nurse Practitioner Family
DX: L03.011 Cellulitis of right finger (principal); S62.610D Displaced fracture of proximal phalanx of right index finger, subsequent encounter for fracture with routine healing; X58.XXXD Exposure to other specified factors, subsequent encounter
CPT/HCPCS: 36415; 80053; 85652; 87077; 99284; 73140; 85025; 86140; 87070; 87186; 87205

== ENCOUNTER 2024-01-12 14:02 | Outpatient (CLI) | payer BC, SELFPAY ==
--- NOTE | 2024-01-12 09:05 | DI.RAD_ITS ---
Exam(s) XR FINGER RT INDEX EXAM: XR FINGER RT INDEX CLINICAL HISTORY: ORIF of right index finger. TECHNIQUE: 2D digital imaging was performed. COMPARISON: CR,XR XR FINGER RT INDEX from 01/09/2024 FINDINGS: 3 views The longitudinal K-wire has been removed. There are 2 remaining K-wires across the fracture site in the head of the proximal phalanx of the 2nd-index finger. Fracture line is still visible at this lev el but not displaced. There are no additional fractures evident. No obvious radiographic evidence o f osteomyelitis. Incidentally noted are 3 fixation screws in the 4th metacarpal again noted IMPRESSION: Stable appearance DATA REPOSITORY: RADIATION DOSE DELIVERED:
== END 2024-01-12 14:03 | disposition home or self-care (01) ==
LOC: DIORS 14:02
PROVIDERS: PCP Nurse Practitioner Family; Visit Provider Physician Assistant
DX: S62.610D Displaced fracture of proximal phalanx of right index finger, subsequent encounter for fracture with routine healing (principal); X58.XXXD Exposure to other specified factors, subsequent encounter
CPT/HCPCS: 73140

== ENCOUNTER 2024-01-30 08:43 | Outpatient (CLI) | payer BC, SELFPAY ==
--- NOTE | 2024-01-30 08:00 | DI.RAD_ITS ---
Exam(s) XR FINGER RT INDEX EXAM: XR FINGER RT INDEX INDICATION: F/U R INDEX FINGER FX. COMPARISON: CR XR FINGER RT INDEX from 01/12/2024 TECHNIQUE: 2D digital imaging was performed. Three views. FINDINGS: Two pins remain in place at the distal aspect of the 2nd proximal phalanx. The fracture is no longe r discretely visible. The bones appear osteopenic from disuse. DATA REPOSITORY: RADIATION DOSE DELIVERED:
== END 2024-01-30 08:44 | disposition home or self-care (01) ==
LOC: DIORS 08:44
PROVIDERS: PCP Nurse Practitioner Family; Referring Provider Nurse Practitioner Family; Visit Provider Physician Assistant
DX: S62.610D Displaced fracture of proximal phalanx of right index finger, subsequent encounter for fracture with routine healing (principal); X58.XXXD Exposure to other specified factors, subsequent encounter
CPT/HCPCS: 73140

== ENCOUNTER 2024-02-23 15:26 | Outpatient (CLI) | payer BC, SELFPAY ==
--- NOTE | 2024-02-23 13:00 | DI.RAD_ITS ---
Exam(s) XR FINGER RT INDEX EXAM: XR FINGER RT INDEX INDICATION: f/u R INDEX FINGER. COMPARISON: CR XR FINGER RT INDEX from 12/26/2023 CR XR FINGER RT INDEX from 01/30/2024 TECHNIQUE: 2D digital imaging was performed. Three views. FINDINGS: Two pins remain in place at the distal aspect of the proximal phalanx of the index finger. Stable al ignment. DATA REPOSITORY: RADIATION DOSE DELIVERED:
--- NOTE | 2024-02-23 14:45 | DI.RAD_ITS ---
Exam(s) XR FINGER RT INDEX EXAM: XR FINGER RT INDEX CLINICAL HISTORY: S/P PINNING. TECHNIQUE: 2D digital imaging was performed. Three views. COMPARISON: CR XR FINGER RT INDEX from 12/26/2023 CR XR FINGER RT INDEX from 01/01/2024 CR,XR XR FINGER RT INDEX from 01/09/2024 CR XR FINGER RT INDEX from 01/12/2024 CR XR FINGER RT INDEX from 01/30/2024 CR XR FINGER RT INDEX from 02/23/2024 FINDINGS: BONES: 2 pins are again noted at the distal aspect of the proximal phalanx. Small fracture fragment no longer visible. No bony destructive lesion is seen. JOINTS: No dislocation present. Joint space narrowing at PIP joint. SOFT TISSUE: Swelling around the PIP joint. IMPRESSION: Stable postsurgical changes. DATA REPOSITORY: RADIATION DOSE DELIVERED:
== END 2024-02-23 15:27 | disposition home or self-care (01) ==
LOC: DIORS 15:26
PROVIDERS: PCP Nurse Practitioner Family; Visit Provider Student in an Organized Health Care Education/Training Program
DX: S62.610D Displaced fracture of proximal phalanx of right index finger, subsequent encounter for fracture with routine healing (principal); X58.XXXD Exposure to other specified factors, subsequent encounter
CPT/HCPCS: 73140

== ENCOUNTER 2024-02-24 13:57 | Day surgery (SDC) | payer BC, SELFPAY ==
[2024-02-24 14:16] VITALS: BP 173/84; PULSE 92; RESP 22; TEMP 37; O2SAT 98
[2024-02-24] MEDS: Sodium Bicarbonate 50 MEQ/50 ML VIAL (15:56)
[2024-02-24] MEDS: Lidocaine 1% Multi-Dose W/EPI 1/100,000 50 ML VIAL (15:56)
--- NOTE | 2024-02-24 16:00 | PDOC.DSDIS_ITS ---
Date of service: 02/24/24 Time of Service: 16:04 Discharge Plan Disposition Patient Disposition: Home Condition: Good Discharge Details Reason For Visit: Painful orthopedic hardware Attending Provider: Riley Flynn Primary Care Provider: GAGAN ELLINGTON Home Meds and New Rx's Prescriptions: New hydrocodone-acetaminophen 5-325 mg tablet 1 tab PO Q6H PRN (Reason: severe pain) Qty: 4 0RF Rx Instructions: Take one tablet up to every 6 hours as needed for severe postoperative pain Continued ibuprofen 800 mg tablet 800 mg PO Q6H omeprazole 40 MG capsule,delayed release(DR/EC) 40 mg PO DAILY Qty: 60 acetaminophen 500 mg tablet 1,000 mg PO Q8H PRN (Reason: pain) Qty: 90 3RF Discharge Instructions Additional Instructions: Pin Removal Discharge Instructions Activity: You should keep the hand elevated as much as possible for the first few days. You may use the other fingers as tolerated but avoid trying to do too much too soon. You may perform light activities with the dressing in place. Dressing/Cast: Your dressing should stay in place at all times for the next 48 hours. Do NOT get it wet. After 48 hours you may remove, clean incision and let air dry. Cover with a band-aide or light gauze dressing. Medications: - You should take Tylenol and Ibuprofen for baseline pain control. - You have Hydrocodone for breakthrough pain. - You may apply ice over the finger. Follow-up: 7-10 days Referrals: Riley Flynn MD [ [facility] STAFF PHYSICIAN] - Activity:: Elevate Remove Dressings/Wound Care:: 48 hours Shower/Bathe:: 48 hours Diet:: As Tolerated Discharge Orders Discharge Orders: Discharge Order (Routine); Ordered 02/24/24 Ordered By: Poppy Yuan
[2024-02-24 16:30] VITALS: BP 158/75; PULSE 90; RESP 16; TEMP 36; O2SAT 96
--- NOTE | 2024-02-24 17:00 | W.PM.OP ---
Date of service: 02/24/24 Time of Service: 16:00 Operative Note Operative Note DATE OF PROCEDURE: 02/24/24 PRE-OP DIAGNOSIS: Painful Retained Orthopaedic Hardware - Right Index Finger POST-OP DIAGNOSIS: same PROCEDURE: Removal of buried pin - right index finger SURGEON: Riley Flynn ANESTHESIA TYPE: Local By Surgeon Refer to Anesthesia Record ESTIMATED BLOOD LOSS: 0 PATHOLOGY: none sent TOURNIQUET TIME: 0 COMPLICATIONS: None Patient was transported to: same day Patient's condition: stable Indications: Blake is a 28-year-old who suffered an intra-articular injury of the head of his proximal effects of the right index finger. This was fixed with open reduction and pinning. Unfortunately 1 of those pins became loose and migrated radially and was causing pain and swelling. This was attempted to be removed in the office but was unable to and therefore recommended proceeding to the operating room for removal of buried pin. I discussed the risk of the procedure to include bleeding, infection, pain, stiffness. Despite these risk, he elected to proceed. Findings: A single pin was able to be removed from the radial border of the right index finger, confirmed with fluoroscopy. Procedure Description: Blake was greeted in the preoperative holding area. His identity was confirmed the correct site was identified and marked. The consent was reviewed the patient and signed. He is taken back to the operating room and placed in the supine position on the stretcher with the right hand on the hand table. No prophylactic antibiotics were necessary. The right hand was prepped with ChloraPrep and draped in a standard fashion. Previous incision from the office was extended approxi-3 to 4 mm distally. This was irrigated. Utilizing retractors was able to see the path of the pin but unable to see the pin directly. Therefore I used fluoroscopy to identify the pin which had migrated back into the bone with only 2 to 3 mm exposed outside of the cortex. Utilizing C arm and direct palpation I was then able to grasp the pin and remove it with minimal trauma. X-ray was utilized to confirm appropriate removal of the pin. There is no significant bleeding. The wound was thoroughly irrigated. The skin was then closed with a buried 3-0 Monocryl. The wound was dressed with Xeroform, 4 x 4, conform dressing. At the end the case all counts were correct. He should keep his initial dressing on for 2 days and then transition to a Band-Aid.
--- NOTE | 2024-02-24 17:16 | DI.RAD_ITS ---
Exam(s) XR HAND RT LIMITED EXAM: XR HAND RT LIMITED CLINICAL HISTORY: PAINFUL HARDWARE RIGHT INDEX FINGER. TECHNIQUE: 2D and realtime digital imaging was performed. COMPARISON: CR XR FINGER RT INDEX from 02/23/2024 FINDINGS: Hard copy images show removal of 1 of the previously noted pins at the distal aspect of the proximal phalanx of the index finger. Please see procedure note for details. Fluoro time: 46seconds RADIATION DOSE DELIVERED: faith Potts=0.17 mGy
== END 2024-02-24 16:37 | disposition home or self-care (01) ==
PROVIDERS: PCP Nurse Practitioner Family; Visit Provider Student in an Organized Health Care Education/Training Program
PROC: (CPT 20680; principal; 2024-02-24 16:00)
DX: T84.84XA Pain due to internal orthopedic prosthetic devices, implants and grafts, initial encounter (principal)
CPT/HCPCS: 20680; 76000; 73120; J2004

== ENCOUNTER 2024-05-27 15:30 | Outpatient (CLI) | payer OTHER, SELFPAY ==
--- NOTE | 2024-05-27 10:15 | DI.RAD_ITS ---
Exam(s) XR FINGER RT INDEX EXAM: XR FINGER RT INDEX CLINICAL HISTORY: RIGHT INDEX FINGER PAIN. TECHNIQUE: 2D digital imaging was performed of the right finger. Three views were obtained. PA/AP, oblique, and lateral views were obtained. COMPARISON: CR XR FINGER RT INDEX from 12/17/2023 CR XR FINGER RT INDEX from 12/26/2023 CR XR FINGER RT INDEX from 02/23/2024 CR XR HAND RT LIMITED from 02/24/2024 FINDINGS: BONES: No new fractures appreciated. Only 1 of the pins is present. On the current examination, mor e of the pin now extends beyond the bone and into the soft tissues compared to the prior examination. There is associated soft tissue swelling. No bony destructive lesion is seen. JOINTS: No dislocation present. There is narrowing of the ulnar aspect of the PIP joint. SOFT TISSUE: Normal. IMPRESSION: Interval repositioning of the pin. There has been an interval change in position of the single pin i n the head of the proximal phalanx of the 2nd finger. More of the pin now extends beyond the bone in to the soft tissues. There is associated soft tissue swelling. DATA REPOSITORY: RADIATION DOSE DELIVERED:
== END 2024-05-27 15:31 | disposition home or self-care (01) ==
LOC: DIORS 15:31
PROVIDERS: PCP Nurse Practitioner Family; Visit Provider Physician Assistant
DX: M79.641 Pain in right hand (principal)
CPT/HCPCS: 73140

== ENCOUNTER 2024-06-01 11:51 | Day surgery (SDC) | payer OTHER, SELFPAY ==
[2024-06-01 12:11] VITALS: BP 167/89; PULSE 62; RESP 16; TEMP 36.2; O2SAT 99
--- NOTE | 2024-06-01 14:15 | DI.RAD_ITS ---
Exam(s) XR HAND RT LIMITED EXAM: XR HAND RT LIMITED CLINICAL HISTORY: painful hardware right index finger TECHNIQUE: 2D and realtime digital imaging was performed. CONTRAST MATERIAL: Refer to procedure report. COMPARISON: CR XR FINGER RT INDEX from 05/27/2024 FINDINGS: Fluoroscopy was provided for Dr. Flynn during the performance of a treatment for painful hardware . Please refer to the procedure report for complete details. Ka,r=0.16 mGy IMPRESSION: RADIATION DOSE DELIVERED: 0.0 0.0 0
--- NOTE | 2024-06-01 14:24 | PDOC.DSDIS_ITS ---
Date of service: 06/01/24 Discharge Plan Disposition Patient Disposition: Home Condition: Good Discharge Details Reason For Visit: Painful orthopedic hardware Attending Provider: Riley Flynn Primary Care Provider: GAGAN ELLINGTON Home Meds and New Rx's Prescriptions: New hydrocodone-acetaminophen 5-325 mg tablet 1 tab PO Q6H PRN (Reason: severe pain) Qty: 4 0RF Rx Instructions: Take one tablet up to every 6 hours as needed for severe postoperative pain Continued ibuprofen 800 mg tablet 800 mg PO Q6H omeprazole 40 MG capsule,delayed release(DR/EC) 40 mg PO DAILY Qty: 60 acetaminophen 500 mg tablet 1,000 mg PO Q8H PRN (Reason: pain) Qty: 90 3RF Discharge Instructions Additional Instructions: Pin Removal Discharge Instructions Activity: You should keep the hand elevated as much as possible for the first few days. You may use the other fingers as tolerated but avoid trying to do too much too soon. You may perform light activities with the dressing in place. Dressing/Cast: Your dressing should stay in place at all times for the next 48 hours. Do NOT get it wet. After 48 hours you may remove, clean incision and let air dry. Cover with a band-aide or light gauze dressing. Medications: - You should take Tylenol and Ibuprofen for baseline pain control. - You have Hydrocodone for breakthrough pain. - You may apply ice over the finger. Follow-up: 7-10 days Stand Alone Forms: Sangeetha Lopez (U) Referrals: Riley Flynn MD [ [facility] STAFF PHYSICIAN] - 06/10/24 1:45 pm Activity:: Elevate Remove Dressings/Wound Care:: 48 hours Shower/Bathe:: 48 hours Diet:: As Tolerated Discharge Orders Discharge Orders: Discharge Order (Routine); Ordered 06/01/24 Ordered By: Poppy Yuan
[2024-06-01] MEDS: Lidocaine 1% Multi-Dose W/EPI 1/100,000 50 ML VIAL (15:07)
[2024-06-01] MEDS: Sodium Bicarbonate 50 MEQ/50 ML VIAL (15:07)
[2024-06-01 15:32] VITALS: BP 150/88; PULSE 81; RESP 16; TEMP 36.3; O2SAT 96
--- NOTE | 2024-06-01 17:01 | W.PM.OP ---
Operative Note Operative Note PRE-OP DIAGNOSIS: Painful orthopedic hardware, right index finger PROCEDURE: Removal of hardware, deep, right index finger SURGEON: Riley Flynn ANESTHESIA TYPE: Local By Surgeon Refer to Anesthesia Record ESTIMATED BLOOD LOSS: 0 COMPLICATIONS: None Indications: Olivier is a 28-year-old who suffered a open fracture of his right index finger proximal phalanx head. This was fixed with open reduction and pinning. The pins were cut at the service and left in place. Unfortunately have moved over time. 1 pin was removed previously. The other pain which seem to be stable has now moved and is prominent palmarly. This is causing pain and popping therefore I recommend we remove it soon as possible to avoid any irritation or damage to neighboring tissues. I have reviewed the surgery with him. I discussed risk to include bleeding, infection, pain, stiffness, damage nerves and vessels. Despite these risk, he elects to proceed. Findings: Utilizing C arm fluoroscopy is able to identify the end of the pen. A very small incision was made over the palmar?radial aspect and the pin was removed with minimal difficulty. Procedure Description: Olivier was greeted in the preoperative holding area. His attending was confirmed the correct site was identified and marked. The consent was reviewed the patient and signed. He was taken back to the operating room and kept in the supine position on the stretcher. The right hand was placed onto a hand table. The right hand was prepped with ChloraPrep and draped in standard fashion. A timeout is performed for safe surgery. Utilizing C-arm fluoroscopy I was able to identify the appropriate point of the pen. A small, 3 mm, incision was made overlying serous the skin only. I then used a small hemostat to dissect a plane down to the pin where I was able to palpate it and identify it with C arm fluoroscopy. I then used a small needle school bus driver/mechanic once the pin was palpable to grasp it and pull it out. There is no significant trauma. There is no significant bleeding. The wound was then closed with some skin glue after irrigating it. This was reinforced with Steri-Strips and a gauze wrap. At the end the case all counts were correct. He is transferred back to the day surgery area in stable condition. Date of Procedure: 06/01/24
== END 2024-06-01 15:40 | disposition home or self-care (01) ==
PROVIDERS: PCP Nurse Practitioner Family; Visit Provider Student in an Organized Health Care Education/Training Program
PROC: (CPT 20680; principal; 2024-06-01 15:15)
DX: T84.84XA Pain due to internal orthopedic prosthetic devices, implants and grafts, initial encounter (principal)
CPT/HCPCS: 20680; 76000; 73120; J2004

== ENCOUNTER 2025-05-04 15:17 | Outpatient (REF) | payer OTHER, SELFPAY ==
[2025-05-04 21:39] LABS: Abs Immature Grans 0.02 10^3/uL (0.0-0.06); HCT 43.4 % (40.0-50.0); HGB 14.7 g/dL (13.5-17.5); Immature Grans % 0.2 %; MCH 29.5 pg (27.0-33.0); MCHC 33.9 % (32.0-36.0); MCV 87 fL (80-95); MPV 10.5 fL (8.0-11.0); Platelet Count 283 10^3/uL (130-400); RBC 4.98 10^6/uL (4.36-5.78); RDW 12.6 % (11.8-14.1); RDW-SD 39.7 fL; WBC 9.03 10^3/uL (4.4-10.8)
[2025-05-04 21:52] LABS: Lipase 28 U/L (<53)
[2025-05-04 21:54] LABS: ALT 50 U/L (10-49); AST 49 U/L (<34); Albumin 4.9 g/dL (3.2-5.0); Alkaline Phosphatase 85 U/L (46-116); Anion Gap 9.5 mmol/L (3-11); BUN 12 mg/dL (9-23); Bilirubin, Total 0.5 mg/dL (0.2-1.2); CO2 26.5 mmol/L (20.0-31.0); Calcium 9.9 mg/dL (8.3-10.6); Chloride 108 mmol/L (98-107); Glucose 87 mg/dL (74-106); Potassium 3.5 mmol/L (3.5-5.1); Sodium 144 mmol/L (136-145); Total Protein 7.8 g/dL (5.7-8.2)
== END 2025-05-04 15:18 | disposition home or self-care (01) ==
LOC: LBN 15:17
PROVIDERS: PCP Nurse Practitioner Family; Visit Provider Physician Assistant Medical
DX: R10.13 Epigastric pain (principal)
CPT/HCPCS: 80053; 83690; 85025

== ENCOUNTER → 2025-05-04 16:30 | Outpatient (CLI) | payer OTHER, SELFPAY ==
--- NOTE | 2025-05-04 | DI.US_ITS ---
Exam(s) US ABDOMEN LIMITED EXAM: US ABDOMEN LIMITED CLINICAL HISTORY: R10.13 Epigastric pain, eval gallbladder TECHNIQUE: Ultrasound of the right upper quadrant performed using standard protocol. COMPARISON: No exams were available for comparison FINDINGS: LIVER: Enlarged common 19.8 cm in length. Mild hepatic steatosis.. No focal liver lesions are seen. GALLBLADDER: No evidence of cholelithiasis. No evidence of wall thickening. No pericholecystic fluid identified. MANCINI'S SIGN: Negative. BILIARY SYSTEM: No intrahepatic or extrahepatic biliary ductal dilation. RIGHT KIDNEY: Normal size. No evidence of renal calculi. No evidence of hydronephrosis. No suspicious renal mass. No cyst identified. PANCREAS: Normal where visualized. ABDOMINAL AORTA AND IVC: Visualized portions normal caliber. ASCITES: None seen. IMPRESSION: Enlarged liver with mild hepatic steatosis. No evidence of gallstones, gallbladder wall thickening or biliary dilatation. DATA REPOSITORY:
--- NOTE | 2025-05-04 | DI.RAD_ITS ---
Exam(s) XR CHEST 2V PA LATERAL EXAM: XR CHEST 2V PA LATERAL CLINICAL HISTORY: R07.9 Chest pain unspecified TECHNIQUE: 2D digital imaging was performed. Two views. COMPARISON: CR XR PORTABLE CHEST AP from 12/11/2021 FINDINGS: HEART: Normal size. Aorta: Not dilated. PULMONARY VASCULATURE: Normal. MEDIASTINUM: Unremarkable. LUNGS: Clear. PLEURAL SPACE: No pleural effusion or pneumothorax. BONE:Unremarkable for age. SOFT TISSUES: Unremarkable. IMPRESSION: No acute abnormality. DATA REPOSITORY: RADIATION DOSE DELIVERED:
== END ==
LOC: DI 16:31
PROVIDERS: PCP Nurse Practitioner Family; Visit Provider Physician Assistant Medical
DX: R10.13 Epigastric pain (principal); R07.9 Chest pain, unspecified
CPT/HCPCS: 71046; 76705

== ENCOUNTER 2025-05-05 12:48 | Outpatient (RCR) | payer OTHER, SELFPAY ==
--- NOTE | 2025-05-24 08:59 | W.HOLTRPT ---
Date of service: 05/24/25 Time of Service: 08:59 Holter Monitor Report Referring Provider:: Janay Briones Indications:: Palpitations Holter Monitor Note: This is a 48 hour Holter monitor. Rhythm throughout was sinus with an average heart rate of 76. Minimum was 51, maximum 134 There were rare isolated atrial and ventricular ectopic beats. There were 2 instances of supraventricular tachycardia. 1 lasted 10 seconds. The other was 6 beats in duration and was interpreted by the computer as representing ventricular tachycardia, but was SVT with aberrancy. SVT was asymptomatic There was no atrial fibrillation, no high-grade AV block, no pauses greater than 3 seconds. Patient symptoms were reported which correlated to sinus rhythm
== END 2025-05-18 23:59 | disposition home or self-care (01) ==
LOC: CARDOPNVT 12:48
PROVIDERS: PCP Nurse Practitioner Family; Referring Provider Physician Assistant Medical; Visit Provider Internal Medicine Cardiovascular Disease
DX: R00.2 Palpitations (principal); I49.9 Cardiac arrhythmia, unspecified
CPT/HCPCS: 93225